=== PATIENT | female | born 1990 | race Hispanic/Latino ===

== ENCOUNTER 2018-05-17 03:40 | Inpatient (IN) | payer OTHER, SELFPAY ==
--- OUTSIDE RECORDS SUMMARY | 2018-05-17 07:05 | XMS REPORT ---
:1990 Author Organization [employer] Care Team Providers Name Role Phone Alpesh Obregon Provider Role Unavailable Allergies No Known Allergies Problems Problem Type Condition Code Onset Dates Condition Status Problem Encounter for supervision of Z34.02 Active normal first in second trimester Problem Encounter to determine O36.80X0 Active viability of , single or unspecified fetus Problem Glucosuria R81 Active Problem Encounter for supervision of Z34.01 Active normal first in first trimester Medications No Known Medications Results No Known Results Summary Purpose [employer] Submission
--- OUTSIDE RECORDS SUMMARY | 2018-05-17 07:05 | XMS REPORT ---
:1990 Author Organization [employer] Care Team Providers Name Role Phone Alpesh Obregon Provider Role Unavailable Allergies No Known Allergies Problems Problem Type Condition Code Onset Dates Condition Status Problem Encounter for supervision of Z34.01 Active normal first in first trimester Assessment Encounter for supervision of Z34.01 Active normal first in first trimester Problem Encounter to determine O36.80X0 Active viability of , single or unspecified fetus Assessment Encounter to determine O36.80X0 Active viability of , single or unspecified fetus Medications No Known Medications Results No Known Results Summary Purpose [employer] Submission
--- OUTSIDE RECORDS SUMMARY | 2018-05-17 07:05 | XMS REPORT ---
:1990 Author Organization [employer] Care Team Providers Name Role Phone Alpesh Obregon Provider Role Unavailable Allergies, Adverse Reactions, Alerts Substance Reaction Event Type N.K.D.A. Info Not Available Non Drug Allergy Problems Problem Type Condition Code Onset Dates Condition Status Problem Encounter for supervision of Z34.02 Active normal first in second trimester Problem Encounter to determine O36.80X0 Active viability of , single or unspecified fetus Problem Glucosuria R81 Active Assessment Glucosuria R81 Active Problem Encounter for supervision of Z34.01 Active normal first in first trimester Assessment Encounter for supervision of Z34.02 Active normal first in second trimester Medications No Known Medications Results No Known Results Summary Purpose [employer] Submission
--- OUTSIDE RECORDS SUMMARY | 2018-05-17 07:05 | XMS REPORT ---
:1990 Author Organization [employer] Care Team Providers Name Role Phone Alpesh Obregon Provider Role Unavailable Allergies, Adverse Reactions, Alerts Substance Reaction Event Type N.K.D.A. Info Not Available Non Drug Allergy Problems Problem Type Condition Code Onset Dates Condition Status Problem Encounter to determine O36.80X0 Active viability of , single or unspecified fetus Problem Encounter for supervision of Z34.01 Active normal first in first trimester Problem Encounter for supervision of Z34.02 Active normal first in second trimester Assessment Encounter for supervision of Z34.02 Active normal first in second trimester Medications No Known Medications Results No Known Results Summary Purpose [employer] Submission
--- OUTSIDE RECORDS SUMMARY | 2018-05-17 07:06 | XMS REPORT ---
:1990 Author Organization [employer] Care Team Providers Name Role Phone Alpesh Obregon Provider Role Unavailable Allergies, Adverse Reactions, Alerts Substance Reaction Event Type N.K.D.A. Info Not Available Non Drug Allergy Problems Problem Type Condition Code Onset Dates Condition Status Assessment Encounter for supervision of Z34.03 Active normal first in third trimester Assessment Uterine size-date discrepancy in O26.843 Active third trimester Problem Encounter for supervision of Z34.03 Active normal first in third trimester Problem Glucosuria R81 Active Problem Uterine size-date discrepancy in O26.843 Active third trimester Problem Encounter for supervision of Z34.01 Active normal first in first trimester Problem Encounter for supervision of Z34.02 Active normal first in second trimester Problem Encounter to determine O36.80X0 Active viability of , single or unspecified fetus Medications No Known Medications Results No Known Results Immunizations Vaccine Administration Date TDAP > 7 Years-Adacel Apr 12, 2018 Summary Purpose [employer] Submission
--- OUTSIDE RECORDS SUMMARY | 2018-05-17 07:06 | XMS REPORT ---
:1990 Author Organization [employer] Care Team Providers Name Role Phone Alpesh Obregon Provider Role Unavailable Allergies No Known Allergies Problems Problem Type Condition Code Onset Dates Condition Status Problem Encounter for supervision of Z34.02 Active normal first in second trimester Problem Encounter to determine O36.80X0 Active viability of , single or unspecified fetus Problem Glucosuria R81 Active Assessment Encounter for supervision of Z34.02 Active normal first in second trimester Problem Encounter for supervision of Z34.01 Active normal first in first trimester Medications No Known Medications Results No Known Results Summary Purpose [employer] Submission
--- OUTSIDE RECORDS SUMMARY | 2018-05-17 07:06 | XMS REPORT ---
:1990 Author Organization [employer] Care Team Providers Name Role Phone Alpesh [...] Medications Results No Known Results Summary Purpose [employer] Submission
--- OUTSIDE RECORDS SUMMARY | 2018-05-17 07:06 | XMS REPORT ---
:1990 Author Organization [employer] Care Team Providers Name Role Phone Alpesh Obregon Provider Role Unavailable Allergies No Known Allergies Problems Problem Type Condition Code Onset Dates Condition Status Assessment Encounter for supervision of Z34.03 Active normal first in third trimester Problem Encounter for supervision of [...]
--- OUTSIDE RECORDS SUMMARY | 2018-05-17 07:06 | XMS REPORT ---
[...] discrepancy in O26.843 Active third trimester Problem Glucosuria R81 Active Problem Encounter for supervision of Z34.02 Active normal first in second trimester Problem Encounter for supervision of Z34.03 Active normal first in third trimester Assessment Encounter for supervision of Z34.02 Active normal first in second trimester Problem Encounter to determine O36.80X0 Active viability of , single or unspecified fetus Problem Encounter for supervision of Z34.01 Active normal first in first trimester Medications No Known Medications Results No Known Results Summary Purpose [employer] Submission
--- OUTSIDE RECORDS SUMMARY | 2018-05-17 07:06 | XMS REPORT ---
[...] Medications Results No Known Results Summary Purpose [employer] Submission
[2018-05-17] MEDS ORDERED: BUTORPHANOL 1 MG/ML INJ IV PRN (07:51)
[2018-05-17] MEDS ORDERED: PROMETHAZINE 25 MG/ML VIAL IV PRN (07:51)
[2018-05-17] MEDS ORDERED: METHYLERGONOVINE 0.2MG/ML AMP IM PRN (07:51)
[2018-05-17] MEDS ORDERED: Ringers Lactate 1,000 ML IV PRN (07:51)
[2018-05-17] MEDS ORDERED: Ringers Lactate 1,000 ML IV SCH (08:00)
[2018-05-17 08:13] LABS: RPR Titer ND
[2018-05-17 08:18] LABS: Urine Appearance CLOUDY; Urine Bilirubin NEGATIVE (NEG); Urine Blood NEGATIVE (NEG); Urine Color YELLOW; Urine Glucose NEGATIVE (NEG); Urine Protein NEGATIVE (NEG); Urine Specific Gravity 1.015 (1.005-1.030); Urine Urobilinogen 0.2 mg/dL (0.2-1.0); Urine pH 7.5 (5.0-7.0)
[2018-05-17 08:20] LABS: Absolute Lymphocytes (CBC) 1.8 K/uL (0.7-4.9); Absolute Monocytes 0.4 K/uL (0.1-1.3); Absolute Neutrophil 5.9 K/uL (1.8-8.0); Basophils % 0.4 % (0-1.3); Eosinophils % 0.6 % (0-4.4); Hematocrit 37.7 % (36.0-45.0); Lymphocytes % 22.3 % (15.3-44.8); MCH 29.8 pg (27.0-35.0); MCV 86.5 fL (80-100); MPV 10.3 fL (7.6-11.3); Monocytes % 5.1 % (3.3-12.3); RBC Red Blood Cell Count 4.35 M/uL (3.86-4.86)
[2018-05-17 08:21] LABS: Urine Microscopic Reflex ORDER UMIC
[2018-05-17 08:31] VITALS: BMI 32.3
[2018-05-17 08:34] LABS: Urine Bacteria >50 /HPF (<20); Urine RBC <5 /HPF (NONE SEEN)
[2018-05-17 08:35] LABS: Urine Culture Reflex Order REFLEXED
[2018-05-17] MEDS ORDERED: miSOPROStol 100 MCG TAB VAG PRN (08:45)
[2018-05-17] MEDS ORDERED: ROPIVACAINE HCL 100 ML IV PRN (10:32)
[2018-05-17] MEDS ORDERED: FENTANYL CITR 100 MCG/2 ML IV ONE (10:34)
[2018-05-17] MEDS ORDERED: ROPIVACAINE HCL 0.2% 20ML AMP SQ ONE (10:34)
[2018-05-17] MEDS ORDERED: miSOPROStol 100 MCG TAB VAG SCH (15:00)
[2018-05-17] MEDS ORDERED: OXYTOCIN/LR 20 UNIT/1,000 ML BAG IV SCH (22:00)
--- NOTE | 2018-05-17 22:18 | P.PN ---
Date of Service: 05/17/18 Patient seen and examined at bedside. Patient notably in pain due to contractions. Last cytotec dose placed at 5:45 pm, it is now 6:45 pm. Patient states no leakage of fluid. Does not desire epidural but does need something for pain. VSS Gen: pain distress VE: 1/50%/-3 FHT: category II [place]: ctx q 3 min Early labor No further cytotec. Start pitocin in 4 hours epidural placement once > 2 cm GBS negative.
--- NOTE | 2018-05-17 23:20 | HP ---
Date of Admission: 05/17/2018 History Of Present Illness: The patient is a 27-year-old, 1, para 0, at 40 weeks and 4 days' gestation who presents for induction of labor. The patient has obtained care with me yosvany prasad at 9 weeks' gestation. care has been complicated by some glucose in the urine, otherwi se there have not been any issues. The patient is Rh negative. [facility] she was noted to be fingertip long -3 on her cervical exam. The patient has not been havin g any contractions. She reports good movement. She denies any vaginal bleeding. No leakage o f fluid. Her last ultrasound was performed on March 01, 2018, at which time there was appropriate fet al growth and the fetus was in cephalic presentation. Amniotic fluid was normal. She had a group B strep swab performed on 04/12 and that was negative. She has no medical issues. She has never had a ny surgeries. Family History: Noncontributory. Social History: She is to the father of the baby. Denies tobacco, alcohol, or drug use. Se e records for further details. Review of Systems: Negative. Physical Examination: Vital Signs: Blood pressure is 109/70, pulse is 85, respirations 18, temperature is 98.4. General: The patient is resting comfortably in bed. Head and Neck: Normocephalic, atraumatic. Neck: Supple. Heart: Regular rate and rhythm. Respiratory: Symmetric, nonlabored breathing. Abdomen: Gravid. Extremities: Bilateral lower extremities; no clubbing, cyanosis, or edema. Vaginal: Normal external female genitalia. Vagina is pink, moist, normal rugae. Cervical exam; she is fingertip to 1 cm long, -3 posterior location of the cervix. Laboratory Findings: White blood cell count 8.3, hemoglobin 13, hematocrit 37.7, platelet count is 1 87. Urine has no protein. heart rate monitoring; baseline heart rate is 140, moderate v ariability, category 2 tracing. [place]; irregular contractions. Assessment And Plan: The patient is a 27-year-old, 1, para 0, at 40 weeks and 4 days who pre sents for induction of labor. Cervical ripening has been started with Cytotec insertion, 25 mcg were placed vaginally, and will be placed every 4 hours. Once her cervix is dilated, rupture of membrane s will be performed. She is GBS negative. We will have continuous maternal monitoring. Antic ipate vaginal . Epidural placement at the patient's request. ILDEFONSO Voice ID: [id number]
[2018-05-18] MEDS ORDERED: FENTANYL CITR 100 MCG/2 ML IV ONE (05:21)
[2018-05-18] MEDS ORDERED: ROPIVACAINE HCL 0 ML ONE (05:26)
[2018-05-18] MEDS ORDERED: CEFAZOLIN/NS 1gm 1 GM/50 ML BAG IVPB ONE (08:31)
[2018-05-18] MEDS ORDERED: NA CIT/CITRIC AC 30 ML ORAL UDC PO ONE (08:31)
[2018-05-18] MEDS ORDERED: FAMOTIDINE 20 MG/2 ML VIAL IV ONE (08:35)
[2018-05-18] MEDS ORDERED: CEFAZOLIN/SWI 1gm 1 GM/10 ML SYR IV SCH (08:45)
[2018-05-18] MEDS ORDERED: LIDOCAINE 2% W/EPI 1:200,000 MPF 20 ML VIAL IM ONE (08:54)
[2018-05-18] MEDS ORDERED: METOCLOPRAMIDE 10 MG/2mL INJ IV SCH (09:00)
[2018-05-18] MEDS ORDERED: EPHEDRINE SULF 50 MG/ML SYR ONE (09:01)
[2018-05-18] MEDS ORDERED: OXYTOCIN 10 UNIT/ML ML IV ONE ×2 (09:01→09:02)
[2018-05-18] MEDS ORDERED: MORPHINE SULFATE/PF 1 MG/ML (10 ML AMP) ONE (09:01)
[2018-05-18] MEDS ORDERED: LIDOCAINE 1% MPF 5 ML VIAL ONE (09:02)
[2018-05-18] MEDS ORDERED: BUPIVACAINE 0.75% (PF) 2 ML SP ONE (09:09)
[2018-05-18] MEDS ORDERED: NS 0.9% VIAL 10 ML ONE (09:27)
[2018-05-18] MEDS ORDERED: METHYLERGONOVINE 0.2 MG TAB PO PRN (10:01)
[2018-05-18] MEDS ORDERED: Oxycodone HCl/Acetaminophen 1 TAB TAB PO PRN (10:01)
[2018-05-18] MEDS ORDERED: DOCUSATE NA/SENNA CONC 1 TAB PO PRN (10:01)
[2018-05-18] MEDS ORDERED: ACETAMINOPHEN 500 MG TAB PO PRN (10:01)
[2018-05-18] MEDS ORDERED: ONDANSETRON 4 MG (ODT) TAB PO PRN (10:01)
[2018-05-18] MEDS ORDERED: BISACODYL 10 MG RECTAL SUPP RECT PRN (10:01)
[2018-05-18] MEDS ORDERED: IBUPROFEN 400 MG TAB PO PRN (10:03)
[2018-05-18] MEDS ORDERED: KETOROLAC 30 MG/ML INJ IV PRN (10:03)
--- NOTE | 2018-05-18 10:12 | P.OP ---
Police Officer Booking: Sherry Linda Preoperative diagnosis: term , category II tracing remote from delivery Postoperative diagnosis: same Primary procedure: Primary low transverse section Secondary procedure: none Anesthesia: epidural Estimated blood loss: 800cc Specimen: cord blood, placenta Findings: normal uterus, ovaries, tubes; female infant 8 lb 3 oz; APGARS 9/9 Operative Technique: NDICATIONS: The patient is a 27-year-old 1, para 0 female, who presented to labor and delivery for induction of labor at 40 weeks and 4 days gestation. The patient progressed to 2 cm, at which time, Pitocin was started and epidural was placed. Patient then had a category II tracing with minimal to no variability that was not responding to intrauterine resuscitation. A decision was made to proceed with a primary low transverse section. The procedure was described to the patient in detail including possible risks of bleeding, infection, injury to surrounding organs, and possible need for further surgery. Informed consent was obtained prior to proceeding with the procedure. PROCEDURE NOTE: The patient was taken to the operating room where epidural anesthesia was found to be adequate. The patient was prepped and draped in the usual sterile fashion in the dorsal supine position with a left-brown tilt. A Pfannenstiel skin incision was made with the scalpel and carried through to the underlying layer of fascia using the scalpel. The fascia was incised in the midline and extended laterally using Lake scissors. Ashlee clamps were used to elevate the superior aspect of the fascial incision, which was elevated, and the underlying rectus muscles were dissected off bluntly and using Lake scissors. Attention was then turned to the inferior aspect of the fascial incision, which in similar fashion was grasped with Ashlee clamps, elevated, and the underlying rectus muscles were dissected off bluntly and using Lake scissors. The rectus muscles were dissected in the midline. The peritoneum was bluntly dissected, entered, and extended superiorly and inferiorly with good visualization of the bladder. The bladder blade was inserted. The vesicouterine peritoneum was identified with pickups and entered sharply using Metzenbaum scissors. This incision was extended laterally and the bladder flap was created digitally. The bladder blade was reinserted. The lower uterine segment was incised in a transverse fashion using the scalpel and extended using manual traction. Clear fluid was noted. The infant was subsequently delivered atraumatically. The nose and mouth were bulb suctioned. The cord was clamped and cut. The infant was subsequently handed to the awaiting patient care associate and nursery nurse. Next, cord blood was obtained. Subsequent to the collection of this blood, the placenta was removed spontaneously intact with a 3-vessel cord noted. The uterus was exteriorized and cleared of all clots and debris. The uterine incision was repaired in 2 layers using 0 chromic suture. The vesicouterine peritoneum was reapproximated with a 3.0 vicryl. Hemostasis was visualized. The uterus was returned to the abdomen. The uterine incision was reexamined and was noted to be hemostatic. The rectus muscles were reapproximated in the midline using 0 Vicryl. The fascia was closed with 0 Vicryl, the subcutaneous layer was closed with 2-0 plain gut, and the skin was closed with 3.0 Vicryl on Philipp needle. Sponge, lap, and instrument counts were correct x2. The patient was stable at the completion of the procedure and was subsequently transferred to the recovery room in stable condition. Complications: None Drain(s): Urinary catheter Transferred to: Recovery Room Condition: Good
[2018-05-18] MEDS ORDERED: DIPHENHYDRAMINE 25 MG TAB/CAP PO PRN (10:24)
[2018-05-18] MEDS ORDERED: ONDANSETRON 4 MG/2 ML VIAL IV PRN (10:41)
[2018-05-18] MEDS ORDERED: Rho(D) IG (HUMAN) 300 MCG SYR IM ONE (13:55)
[2018-05-18 16:23] VITALS: O2SAT 98
[2018-05-19 06:06] LABS: Absolute Lymphocytes (CBC) 1.5 K/uL (0.7-4.9); Absolute Monocytes 0.7 K/uL (0.1-1.3); Basophils % 0.5 % (0-1.3); Eosinophils % 0.3 % (0-4.4); Lymphocytes % 13.2 % (15.3-44.8); MCH 29.7 pg (27.0-35.0); MCV 87.3 fL (80-100); MPV 10.3 fL (7.6-11.3); Monocytes % 6.3 % (3.3-12.3); RBC Red Blood Cell Count 3.55 M/uL (3.86-4.86)
--- NOTE | 2018-05-19 07:04 | P.PN ---
Date of Service: 05/19/18 S- No complaints O-Afeb, vs stable, H/H stable, bandage dry, abdomen soft. A-Satisfactory P-Routine post op care with ambulation, advance diet, d/c guerrero, probably home tomorrow am.
[2018-05-19] MEDS: Oxycodone HCl/Acetaminophen 1 TAB TAB PO PRN ×3 (09:40→19:27)
[2018-05-19] MEDS ORDERED: INFLUENZA VACCINE (for 3y+) 0.5 ML DOSE IMVAC ONE ×2 (16:25→16:37)
[2018-05-19 18:44] LABS: HBsAG Nonreactive (Nonreactive)
[2018-05-19 20:59] LABS: RPR (Rapid Plasma Reagin) NON-REACT (NON-REACT)
[2018-05-20 07:22] VITALS: BP 113/72; TEMP 97.4
== END 2018-05-20 10:15 | disposition home or self-care (01) | DRG 788 ==
LOC: 2ND-WCNRSY 07:04 → 2ND-WC 08:06
PROVIDERS: ADMIT Student in an Organized Health Care Education/Training Program; ATTEND Student in an Organized Health Care Education/Training Program
PROC: 3E0P7VZ Introduction of Hormone into Female Reproductive, Via Natural or Artificial Opening (ICD-10-PCS; 2018-05-17)
PROC: 3E033VJ Introduction of Other Hormone into Peripheral Vein, Percutaneous Approach (ICD-10-PCS; 2018-05-18)
PROC: 10D00Z1 Extraction of Products of Conception, Low, Open Approach (ICD-10-PCS; principal; 2018-05-18 09:00)
DX: O76 Abnormality in fetal heart rate and rhythm complicating labor and delivery (principal); O62.4 Hypertonic, incoordinate, and prolonged uterine contractions; Z3A.40 40 weeks gestation of pregnancy; Z37.0 Single live birth
CPT/HCPCS: 36415; 81003; 81015; 85025; 85461; 86592; 86850; 86870; 86900; 86901; 87086; 87088; 87340; 88307; J0595; J0690; J2590; J2765; J2790; J2795; J3010; Q2035

== ENCOUNTER 2018-08-21 23:29 | Emergency (ER) | payer BC, OTHER ==
--- OUTSIDE RECORDS SUMMARY | 2018-08-21 23:31 | XMS REPORT ---
[...] Medications Results No Known Results Summary Purpose [employer] Submission
--- OUTSIDE RECORDS SUMMARY | 2018-08-21 23:32 | XMS REPORT ---
[...] 7 Years-Adacel Apr 12, 2018 Summary Purpose [employer] Submission
--- OUTSIDE RECORDS SUMMARY | 2018-08-21 23:32 | XMS REPORT ---
[...] Medications Results No Known Results Summary Purpose [employer] Submission
--- OUTSIDE RECORDS SUMMARY | 2018-08-21 23:32 | XMS REPORT ---
:1990 Author Organization [employer]ClinicalWorks Care Team Providers Name Role Phone Alpesh Obregon Provider Role Unavailable Allergies No Known Allergies Problems Problem Type Condition Code Onset Dates Condition Status Problem Encounter for supervision of Z34.01 Active normal first in first trimester Problem Encounter for routine Z39.2 Active follow-up Problem Uterine size-date discrepancy in O26.843 Active third trimester Problem Encounter for initial prescription Z30.011 Active of contraceptive pills Problem Encounter for supervision of Z34.02 Active normal first in second trimester Problem Encounter to determine O36.80X0 Active viability of , single or unspecified fetus Problem Encounter for supervision of Z34.03 Active normal first in third trimester Problem Glucosuria R81 Active Medications No Known Medications Results No Known Results Summary Purpose [employer]ClinicalWorks Submission
--- OUTSIDE RECORDS SUMMARY | 2018-08-21 23:32 | XMS REPORT ---
:1990 Author Organization [employer] Care Team Providers Name Role Phone Alpesh [...] Medications Results No Known Results Summary Purpose [employer] Submission
--- OUTSIDE RECORDS SUMMARY | 2018-08-21 23:32 | XMS REPORT ---
:1990 Author Organization [employer] Care Team Providers Name Role Phone Alpesh [...] Medications Results No Known Results Summary Purpose [employer] Submission
--- OUTSIDE RECORDS SUMMARY | 2018-08-21 23:32 | XMS REPORT ---
[...] Medications Results No Known Results Summary Purpose [employer] Submission
--- OUTSIDE RECORDS SUMMARY | 2018-08-21 23:32 | XMS REPORT ---
:1990 Author Organization [employer]Works Care Team Providers Name Role Phone Alpesh Obregon Provider Role Unavailable Allergies No Known Allergies Problems Problem Type Condition Code Onset Dates Condition Status Assessment Encounter for initial prescription Z30.011 Active of contraceptive pills Problem Encounter for supervision of Z34.01 Active [...]
--- OUTSIDE RECORDS SUMMARY | 2018-08-21 23:32 | XMS REPORT ---
:1990 Author Organization [employer]Works Care Team Providers Name Role Phone Alpesh Obregon Provider Role Unavailable Allergies, Adverse Reactions, Alerts Substance Reaction Event Type N.K.D.A. Info Not Available Non Drug Allergy Problems Problem Type Condition Code Onset Dates Condition Status Assessment History of delivery Z98.891 Active Assessment Postop check Z09 Active Problem Encounter for supervision of Z34.03 Active [...]
[2018-08-22 00:48] LABS: Absolute Monocytes 0.4 K/uL (0.1-1.3); Basophils % 0.6 % (0-1.3); Eosinophils % 3.3 % (0-4.4); Hematocrit 42.6 % (36.0-45.0); Lymphocytes % 38.7 % (15.3-44.8); MPV 9.4 fL (7.6-11.3); Monocytes % 5.4 % (3.3-12.3); RBC Red Blood Cell Count 5.04 M/uL (3.86-4.86)
[2018-08-22 01:02] LABS: ALT/SGPT 31 U/L (12-78); AST/SGOT 14 U/L (15-37); Albumin 4.1 g/dL (3.4-5.0); Alkaline Phosphatase 59 U/L (45-117); BUN Blood Urea Nitrogen 19 mg/dL (7-18); Bicarbonate 28 mmol/L (21-32); Bilirubin Direct 0.2 mg/dL (0-0.2); Bilirubin Total 0.5 mg/dL (0.2-1.0); Glucose Level 88 mg/dL (74-106); Lipase 203 U/L (73-393); Potassium 3.3 mmol/L (3.5-5.1); Sodium Level 141 mmol/L (136-145)
[2018-08-22] MEDS ORDERED: FENTANYL CITR 100 MCG/2 ML ONE (01:18)
--- NOTE | 2018-08-22 03:03 | EDPHYS ---
Physician Documentation [facility] Name: Inez Oro Age: 27 yrs Sex: Female : 1990 Arrival Date: 08/21/2018 Time: 23:29 Bed 18 Private MD: ED Physician Jeison Santos HPI: 08/22 01:17 This 27 yrs old Female presents to ER via Ambulatory with complaints of jr8 Abdominal Pain. 01:17 The patient presents with abdominal pain in the upper abdomen. Onset: The jr8 symptoms/episode began/occurred acutely, today. The symptoms do not radiate. Associated signs and symptoms: none. The symptoms are described as sharp. Modifying factors: The symptoms are alleviated by nothing, the symptoms are aggravated by nothing. Severity of pain: At its worst the pain was moderate in the emergency department the pain has resolved. The patient has not experienced similar symptoms in the past. The patient has not recently seen a physician. recent 3 months ago. Has been great up until tonight when she started with upper abdominal pain. Ate around 7 pm. Pain started about 1 hour prior to arrival . ELECTRIC RELAY TESTER: 08/21 23:41 LMP 07/2018 bb Historical: - Allergies: 23:41 No Known Allergies; bb - Home Meds: 23:41 None [Active]; bb - PMHx: 23:41 None; bb - PSHx: 23:41 ; bb - Immunization history:: Adult Immunizations up to date. - Social history:: Smoking status: Patient/guardian denies using tobacco. - Ebola Screening: : No symptoms or risks identified at this time. ROS: 08/22 01:17 Eyes: Negative for injury, pain, redness, and discharge, ENT: Negative for injury, jr8 pain, and discharge, Neck: Negative for injury, pain, and swelling, Cardiovascular: Negative for chest pain, palpitations, and edema, Respiratory: Negative for shortness of breath, cough, wheezing, and pleuritic chest pain, Back: Negative for injury and pain, MS/Extremity: Negative for injury and deformity, Skin: Negative for injury, rash, and discoloration, Neuro: Negative for headache, weakness, numbness, tingling, and seizure. Abdomen/GI: Positive for abdominal pain, nausea, Negative for vomiting, diarrhea, abdominal cramps, abdominal distension, anorexia, dysphagia, hematemesis, black/tarry stool, rectal pain, rectal bleeding, bowel incontinence, flatulence. Exam: :17 Eyes: Pupils equal round and reactive to light, extra-ocular motions intact. Lids and jr8 lashes normal. Conjunctiva and sclera are non-icteric and not injected. Cornea within normal limits. Periorbital areas with no swelling, redness, or edema. ENT: Nares patent. No nasal discharge, no septal abnormalities noted. Tympanic membranes are normal and external auditory canals are clear. Oropharynx with no redness, swelling, or masses, exudates, or evidence of obstruction, uvula midline. Mucous membranes moist. Neck: Trachea midline, no thyromegaly or masses palpated, and no cervical lymphadenopathy. Supple, full range of motion without nuchal rigidity, or vertebral point tenderness. No Meningismus. Cardiovascular: Regular rate and rhythm with a normal S1 and S2. No gallops, murmurs, or rubs. Normal PMI, no JVD. No pulse deficits. Respiratory: Lungs have equal breath sounds bilaterally, clear to auscultation and percussion. No rales, rhonchi or wheezes noted. No increased work of breathing, no retractions or nasal flaring. Back: No spinal tenderness. No costovertebral tenderness. Full range of motion. Skin: Warm, dry with normal turgor. Normal color with no rashes, no lesions, and no evidence of cellulitis. MS/ Extremity: Pulses equal, no cyanosis. Neurovascular intact. Full, normal range of motion. Neuro: Awake and alert, GCS 15, oriented to person, place, time, and situation. Cranial nerves II-XII grossly intact. Motor strength 5/5 in all extremities. Sensory grossly intact. Cerebellar exam normal. Normal gait. :17 Abdomen/GI: Inspection: abdomen appears normal, Bowel sounds: active, all quadrants, Palpation: soft, in all quadrants, mild abdominal tenderness, in the right upper quadrant, rebound tenderness, is not appreciated, voluntary guarding, is not appreciated, involuntary guarding, is not appreciated, no appreciated organomegaly, Indicators: McBurney's point is not tender, Bedoya's sign is negative, Rovsing's sign is negative, Liver: tenderness, is not appreciated. Vital Signs: 08/21 23:41 BP 124 / 94; Pulse 62; Resp 16 S; Temp 98(O); Pulse Ox 100% on R/A; Weight 72.57 kg bb (R); Height 5 ft. 5 in. (165.10 cm) (R); Pain 8; 08/22 00:30 BP 100 / 60; Pulse 60; Resp 18; Pulse Ox 98% on R/A; ea 01:00 BP 95 / 59; Pulse 66; Resp 18; Pulse Ox 98% on R/A; ea 02:30 BP 102 / 60; Pulse 60; Resp 19; Pulse Ox 99% ; ea 02:55 BP 108 / 58; Pulse 58; Resp 18; Pulse Ox 99% on R/A; ea 08/21 23:41 Body Mass Index 26.63 (72.57 kg, 165.10 cm) bb MDM: 00:13 Patient medically screened. jr8 03:01 Data reviewed: vital signs, nurses notes, lab test result(s), radiologic studies, CT jr8 scan, and as a result, I will discharge patient. Data interpreted: Pulse oximetry: on room air is 100 %. Interpretation: normal. Counseling: I had a detailed discussion with the patient and/or guardian regarding: the historical points, exam findings, and any diagnostic results supporting the discharge/admit diagnosis, lab results, radiology results, the need for outpatient follow up, a general surgeon, to return to the emergency department if symptoms worsen or persist or if there are any questions or concerns that arise at home. Response to treatment: the patient's symptoms have markedly improved after treatment. 08/22 00:13 Order name: Basic Metabolic Panel; Complete Time: 08/22 00:13 Order name: CBC with Diff; Complete Time: 08/22 00:13 Order name: Creatinine for Radiology; Complete Time: 08/22 00:13 Order name: Hepatic Function; Complete Time: 08/22 00:13 Order name: Lipase; Complete Time: 08/22 00:39 Order name: Urine Dipstick--Ancillary (enter results); Complete Time: 03:11 mw2 08/22 00:13 Order name: IV Saline Lock; Complete Time: 00:22 08/22 00:13 Order name: Labs collected and sent; Complete Time: 00:08/22 00:13 Order name: Urine Test (obtain specimen); Complete Time: :08/22 00:13 Order name: Urine Dipstick-Ancillary (obtain specimen); Complete Time: :08/22 00:39 Order name: Urine --Ancillary (enter results); Complete Time: 03:11 mw2 08/22 01:19 Order name: CT Abd/Pelvis - W/Contrast 8 Administered Medications: 01:14 Drug: fentaNYL (PF) 25 mcg Route: IVP; Site: right antecubital; ea 02:00 Follow up: Response: No adverse reaction; Pain is decreased rr5 Disposition: 05:21 Co-signature as Attending Physician, Jeison Santos MD I agree with the assessment and tw4 plan of care. Disposition: 08/22/18 03:02 Discharged to Home. Impression: Cholelithiasis. - Condition is Stable. - Discharge Instructions: Cholelithiasis. - Prescriptions for Tylenol- Codeine #3 300-30 mg Oral Tablet - take 2 tablets by ORAL route every 6 hours As needed; 12 tablet. Zofran 4 mg Oral Tablet - take 1 tablet by ORAL route every 12 hours As needed; 20 tablet. - Medication Reconciliation Form, Thank You Letter, Antibiotic Education, Prescription Opioid Use form. - Follow up: Dieter Man MD; When: 5 - 6 days; Reason: Recheck today's complaints, Continuance of care, Re-evaluation by your physician. - Problem is new. - Symptoms have improved. Signatures: Dispatcher [employer] EDAileen Eller RN RN Edgar Whelan PA PA jr8 Jennie Beckwith RN RN ea Wadley, Terrence, MD MD tw4 Gagan Nur RN rr5 Corrections: (The following items were deleted from the chart) 03:20 03:02 08/22/2018 03:02 Discharged to Home. Impression: Cholelithiasis. Condition is ea Stable. Forms are Medication Reconciliation Form, Thank You Letter, Antibiotic Education, Prescription Opioid Use. Follow up: Dieter Man; When: 5 - 6 days; Reason: Recheck today's complaints, Continuance of care, Re-evaluation by your physician. Problem is new. Symptoms have improved. jr8
--- NOTE | 2018-08-22 03:03 | ER ---
Nurse's Notes [facility] Name: Inez Oro Age: 27 yrs Sex: Female : 1990 Arrival Date: 08/21/2018 Time: 23:29 Bed 18 Private MD: Diagnosis: Cholelithiasis Presentation: 08/21 23:40 Presenting complaint: Patient states: she is having abdominal pain which started about bb 5 minutes ago with nausea pt states pain is 8/10. Transition of care: patient was not received from another setting of care. Onset of symptoms was August 21, 2018. Risk Assessment: Do you want to hurt yourself or someone else? Patient reports no desire to harm self or others. Initial Sepsis Screen: Does the patient meet any 2 criteria? No. Patient's initial sepsis screen is negative. Does the patient have a suspected source of infection? No. Patient's initial sepsis screen is negative. Care prior to arrival: None. 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 - Social history:: Smoking status: Patient/guardian denies using tobacco. - Ebola Screening: : No symptoms or risks identified at this time. Screenin/15 00:14 Abuse screen: Denies threats or abuse. Nutritional screening: No deficits noted. ea Tuberculosis screening: No symptoms or risk factors identified. Fall Risk None identified. Assessment: 00:12 General: Appears uncomfortable, Behavior is calm, cooperative, appropriate for age. ea Pain: Complains of pain in epigastric area, right upper quadrant and left upper quadrant Quality of pain is described as shooting. Neuro: Level of Consciousness is awake, alert, obeys commands, Oriented to person, place, time, situation. Cardiovascular: Patient's skin is warm and dry. Respiratory: Airway is patent Respiratory effort is even, unlabored, Respiratory pattern is regular, symmetrical. GI: Abdomen is non-distended, Bowel sounds present X 4 quads. Abd is soft and non tender X 4 quads. : No signs and/or symptoms were reported regarding the genitourinary system. Derm: Skin is dry, Skin is pale, Skin temperature is warm. Musculoskeletal: Circulation, motion, and sensation intact. 01:30 Reassessment: Patient and/or family updated on plan of care and expected duration. Pain rr5 level reassessed. Patient is alert, oriented x 3, equal unlabored respirations, skin warm/dry/pink. 02:50 Reassessment: Patient and/or family updated on plan of care and expected duration. Pain ea level reassessed. Patient is alert, oriented x 3, equal unlabored respirations, skin warm/dry/pink. 03:16 Reassessment: Patient and/or family updated on plan of care and expected duration. Pain ea level reassessed. Patient is alert, oriented x 3, equal unlabored respirations, skin warm/dry/pink. Discharge instructions given to patient, verbalized the understanding of instructions. Vital Signs: 08/21 23:41 BP 124 / 94; Pulse 62; Resp 16 S; Temp 98(O); Pulse Ox 100% on R/A; Weight 72.57 kg bb (R); Height 5 ft. 5 in. (165.10 cm) (R); Pain 8/10; 08/22 00:30 BP 100 / 60; Pulse 60; Resp 18; Pulse Ox 98% on R/A; ea 01:00 BP 95 / 59; Pulse 66; Resp 18; Pulse Ox 98% on R/A; ea 02:30 BP 102 / 60; Pulse 60; Resp 19; Pulse Ox 99% ; ea 02:55 BP 108 / 58; Pulse 58; Resp 18; Pulse Ox 99% on R/A; ea 08/21 23:41 Body Mass Index 26.63 (72.57 kg, 165.10 cm) bb ED Course: 08/21 23:29 Patient arrived in ED. am2 23:41 Triage completed. bb 23:41 Arm band placed on Patient placed in an exam room, on a stretcher, on pulse oximetry. bb Family accompanied patient. 23:53 Jennie Beckwith, [facility] is Primary Nurse. ea 08/22 00:12 Edgar Rodriguez PA is PHCP. jr8 00:13 Jeison Santos MD is Attending Physician. jr8 00:14 Patient has correct armband on for positive identification. Placed in gown. Bed in low ea position. Call light in reach. Side rails up X 1. 01:[address] via wheelchair. kw1 01:45 CT Abd/Pelvis - W/Contrast In Process Unspecified. EDMS 01:46 CT completed. Patient tolerated procedure well. Patient moved back from CT. kw1 03:02 Dieter Man MD is Referral Physician. jr8 03:17 No provider procedures requiring assistance completed. IV discontinued, intact, ea bleeding controlled, No redness/swelling at site. Pressure dressing applied. Administered Medications: 01:14 Drug: fentaNYL (PF) 25 mcg Route: IVP; Site: right antecubital; ea 02:00 Follow up: Response: No adverse reaction; Pain is decreased rr5 Outcome: 03:02 Discharge ordered by MD. jr8 03:17 Discharged to home ambulatory, with family. ea 03:17 Condition: improved 03:17 Discharge instructions given to patient, family, Instructed on discharge instructions, follow up and referral plans. medication usage, Demonstrated understanding of instructions, follow-up care, medications, Prescriptions given X 2. 03:20 Patient left the ED. ea Signatures: Dispatcher [employer] EDMS Aileen Solorzano RN RN Edgar Whelan PA PA jr8 Margret Gustafson Elena, RN RN Catherine Kim kw1 Gagan Nur RN RN rr5
[2018-08-22 03:09] LABS: Urine Blood TRACE (NEG); Urine Glucose NEGATIVE (NEG); Urine Protein NEGATIVE (NEG); Urine Specific Gravity 1.025 (1.005-1.030); Urine pH 6.5 (5.0-7.0)
[2018-08-22 03:36] VITALS: TEMP 98
[2018-08-22 03:40] VITALS: O2SAT 99
[2018-08-22 03:41] VITALS: BP 108/58
--- NOTE | 2018-08-22 08:14 | RAD REPORT ---
EXAM DESCRIPTION: CTAbdomen Pelvis W Contrast - 08/22/2018 5:01 am CLINICAL HISTORY: Abdominal pain. iv only;Abd pain COMPARISON: No comparisons TECHNIQUE: Biphasic CT imaging of the abdomen and pelvis was performed with 100 ml non-ionic IV cont rast. All CT scans are performed using dose optimization technique as appropriate and may include automated exposure control or mA/KV adjustment according to patient size. FINDINGS: The lung bases are clear.Cholelithiasis. The liver, spleen, pancreas, adrenal glands and kidneys are within normal limits. No bowel obstruction, free air, free fluid or abscess. The appendix is normal. No evidence of signi ficant lymphadenopathy. Chronic spondylolysis L5-S1. IMPRESSION: Cholelithiasis.
== END 2018-08-22 03:20 | disposition home or self-care (01) ==
LOC: ER 23:29
DX: K80.20 Calculus of gallbladder without cholecystitis without obstruction (principal)
CPT/HCPCS: 36415; 74177; 80048; 80076; 81003; 81025; 83690; 85025; 96374; 99284; J3010; Q9967

== ENCOUNTER 2022-03-21 19:23 | Emergency (ER) | payer BC, OTHER ==
--- OUTSIDE RECORDS SUMMARY | 2022-03-21 19:26 | XMS REPORT | Continuity of Care Document ---
:1990 Author Organization [facility] t Address [address] [place] [address] Care Team Providers Name Role Phone Corinne Quezada Primary Care Physician Mega Recinos Attending Clinician Unavailable AYDIN IRENE Attending Clinician Unavailable David Rivas Attending Clinician Unavailable Aydin Irene MD Attending Clinician VICKY VILLA Attending Clinician Unavailable Gopi García Admitting Clinician Unavailable KNOW, DOES_NOT Admitting Clinician Unavailable Payers Payer Name Policy Type Policy Number Effective Date Expiration Date [facility] - [id number] 2021 00:00:00 OUT OF STATE Problems Condition Condition Condition Status Onset Resolution Last Treating Co mments Source Name Details Category Date Date Treatment Clinician Date Encounter Encounter Problem Active Com mon for for Spirit supervisio supervisio - [facility] first trimester trimester Encounter Encounter Problem Active Com mon to to Spirit determine determine - [facility] I [facility] viability viability [facility] , , Ce nter single or single or unspecifie unspecifie d fetus d fetus Encounter Encounter Problem Active Com mon for for Spirit supervisio supervisio - [facility] n of n of [facility] normal [facility] in second in second trimester trimester Glucosuria Glucosuria Problem Active C ommon Spirit - [facility] Encounter Encounter Problem Active Com mon for for Spirit supervisio supervisio - [facility] n of n of St normal normal [facility] in third in third trimester trimester Uterine Uterine Problem Active Common size-date size-date Spir it discrepanc discrepanc - CHI y in third y in third St trimester trimester [facility] Encounter Encounter Problem Active Com mon for for Spirit initial initial - [facility]I prescripti prescripti St on of on of LuAirSage contracept contracept Me dical magda pills magda pills Cent er Encounter Encounter Problem Active Com mon for for Spirit routine routine - [facility]I St follow-up follow-up [facility] Calculus Calculus Diagnosis Active Com mon of of Edilberto gallbladde gallbladde - [facility]I r without r without St cholecysti cholecysti Karin kes tis tis Medical without without Center obstructio obstructio n n Allergies, Adverse Reactions, Alerts Allergy Allergy Status Severity Reaction(s) Onset Inactive Treating Comm ents Source Name Type Date Date Clinician No Known DA Active U 2020-0 [facility] 00 [facility] No Known DA Active U 2020-0 [facility] Allergie 6-19 [facility] 00:[facility] 00 [facility] NO KNOWN Drug Active Univers ALLERGIE Class ity of S [facility] Social History Social Habit Start Date Stop Date Quantity Comments Source Sex Assigned At [birth year] [facility] 00:00:00 00:00:00 [facility] Smoking Status Start Date Stop Date Source Unknown if ever smoked [facility] Medications Ordered Filled Start Stop Current Ordering Indication Dosage Frequency Signature Comments Components Source Medication Medication Date Date Medication? Clinician (SIG) Name Name Dixie Dixie 2018- Yes Diteer 1 tablet Com mon 1- Kovacpaemla Spirit 00:00: - [facility] 00 [facility] 1 1 Yes Dieter as Com mon Kovacev directed [facility] Immunizations Ordered Filled Immunization Date Status Comments Sourc e Immunization Name Name SARS-COV-2 COVID-19 2021-08-14 Completed [facility] 00:00:00 [facility] SARS-COV-2 COVID-19 2020-11-14 Completed Unive rsity of PFIZER VACCINE 00:00:00 [facility] SARS-COV-2 COVID-19 2020-10-24 Completed Unive rsity of PFIZER VACCINE 00:00:00 [facility] TDAP > 7 TDAP > 7 2018-04-12 Completed Common Spirit - Years-Adacel Years-Adacel 00:00:00 [facility] Procedures Procedure Date / Time Performed Performing Clinician Sourc e SARS-COV-2 COVID-19 2021-08-14 20:12:33 Doctor Unassigned, No [facility] [place] VACCINE,0.3ML,IM Name [facility] (PFIZER) [id number] 2020-01-28 00:00:00 [facility] [id number] 2020-01-28 00:00:00 [facility] [id number] 2020-01-28 00:00:00 [facility] Encounters Start End Encounter Admission Attending Care Care Encounter Source Date/Time Date/Time Type Type Clinicians Facility Department ID 2020-01-25 Inpatient Ever, [facility] [id number] [facility] 07:15:[id number] [facility] 2021-08-14 2021-08-14 Outpatient R MARIA VICTORIA [facility] [id number] Univers 13:40:00 14:01:15 [facility] 2021-08-14 2021-08-14 Nurse Nurse, David Oropeza [facility] [id number] Univers 13:40:00 14:01:[id number] [facility] [id number] Dat as HARJINDER?BLEA [phone] Mi jacobo DUARTE [address] [place] [address] MEDICAL OFFICE BUILDING 2021-08-14 2021-08-14 Outpatient R ALLEN [facility] [id number] Univers 13:40:00 13:40:00 VICKY [facility] 2021-08-14 2021-08-14 Outpatient R [facility] [id number] Univers 13:40:00 13:40:00 [id number] [facility] 2020-01-22 2020-01-22 Outpatient Ever, HCACL LABO [id number] [facility] 11:17:00 11:17:00 Ziad [id number] [facility] 2020-01-03 2020-01-03 Outpatient Ever, [facility] RADI [id number] [facility] 08:00:00 08:00:00 Ziad [id number] [facility] 2019-12-28 2019-12-28 Outpatient Ever, [facility] RADI [id number] [facility] 15:00:00 15:00:00 Ziad [id number] [facility] 2018-08-23 2018-08-23 [facility] [id number] Common 13:45:00 13:45:00 t Specialty/U Sp dwayne Specialty [facility] - /Urology Clinic [facility] 2018-07-26 2018-07-26 [facility] [id number] Common 14:40:00 14:40:00 [facility] 2018-07-20 2018-07-20 [facility] [id number] Common 16:03:00 16:03:00 t [facility] pirit Care [facility] 2018-05-25 2018-05-25 [facility] [id number] Common 10:15:00 10:15:[facility] 2018-05-10 2018-05-10 [facility] [id number] Common 15:15:00 15:15:00 t [facility] pirit Care [facility] 2018-05-03 2018-05-03 [facility] [id number] Common 14:30:00 14:30:00 t [facility] pirit Care [facility] 2018-04-27 2018-04-27 Out[facility] [id number] Common 15:45:00 15:45:00 t [facility]omens Care pirit Care [facility] 2018-04-19 2018-04-19 [facility] [id number] Common 15:30:00 15:30:00 t Womens [facility] S pirit Care Clinic - Clinic [facility] 2018-04-12 2018-04-12 [facility] [id number] Common 14:45:00 14:45:00 t Womens [facility] S pirit Care Clinic - Clinic [facility] 2018-03-27 2018-03-27 [facility] [id number] Common 14:15:00 14:15:00 t Women's Women's Spir it Care Care Clinic - [facility] I Clinic [facility] 2018-03-13 2018-03-13 [facility] [id number] Common 13:30:00 13:30:00 t Women's Women's Spir it Care Care Clinic - [facility] I Clinic [facility] 2018-03-01 2018-03-01 [facility] [id number] Common 14:30:00 14:30:00 t Women's Women's Spir it Care Care Clinic - [facility] I Clinic [facility] 2018-01-30 2018-01-30 [facility] [id number] Common 13:45:00 13:45:00 t Women's Women's Spir it Care Care Clinic - [facility] I Clinic [facility] 2018-01-20 2018-01-20 Out[facility] [id number] Common 11:15:00 11:15:00 t Women's Women's Spir it Care Care Clinic - [facility] I Clinic [facility] 2018-01-13 2018-01-13 [facility] [id number] Common 15:28:00 15:28:00 t Women's Women's Spir it Care Care Clinic - [facility] I Clinic [facility] 2017-12-29 2017-12-29 [facility] [id number] Common 13:30:00 13:30:00 t Women's Women's Spir it Care Care Clinic - [facility] I Clinic [facility] 2017-11-28 2017-11-28 Out[facility] [id number] Common 14:15:00 14:15:00 t Women's [facility]'s Sp[facility] it [facility] Care [facility] - [facility] I Clinic [facility] 2017-10-24 2017-10-24 Outpatient Nicholas Gil [id number] Common 14:45:00 14:45:00 t Women's Women's [facility] Results Test Description Test Time Test Comments Results Result [facility] e Comments [facility] 2020-01-30 TRIMESTER 12:03:00 --------RUN DATE: 02/01/20 [facility] PAGE 1 RUN TIME: 940 Specimen Inquiry RUN USER: INTERFACE --------PATIENT: COSTA NEGRO LOC: ARMANDO U #: [id number] AGE/SX: 29/F ROOM: [facility] RE01/25/20[facility] DR: Mega Recinos MD : 89 BED: A DIS: 01/28/20 STATUS: DIS IN TLOC: -------- SPEC #: [id number] RECD: 01/25/20-1005 STATUS: RACHEL MA #: [id number] TRISH: 01/25/20- SUBM DR: Mega Recinos MD ENTERED: 01/28/20-1006 SP TYPE: PLACIII OTHR DR: ORDERED: LEVEL V SURGICA/3 CODES: [id number] - FALLOPIAN TUBE [id number] - PLACENTA, NOS PROCEDURES: LEVEL V SURGICA (Incomplete) TISSUES: PLACENTA, NOS - PLACENTA WITH UTERUS FALLOPIAN TUBE, NOS - BILATERAL FALLOPIAN TUBES CLINICAL HISTORY 29 year old, 37-3/7 weeks, placenta accreta (kr) FINAL DIAGNOSIS Uterus and placenta, hysterectomy with removal of placenta: - placenta increta - placenta with subchorionic hematoma - placenta with foci of chorangiosis and focally increased perivillous fibrin associated with villous degeneration - trivascular umbilical cord and membranes - free of inflammation - uterine cervix - mild chronic inflammation - myometrium - villi focally extend into the myometrium with little to no intervening decidua - uterine serosa - scar on low anterior surface Designated "right fallopian tube", salpingectomy: - fallopian tube with complete surgical transection, no pathologic alteration (see comment) Designated "right fallopian tube, salpingectomy: - fallopian tube with complete surgical transection, no pathologic alteration (see comment) COMMENT: Both fallopian tubes are labeled "right fallopian tube" and each container contained a single fallopian tube, therefore the laterality of these two specimens is uncertain. Dr. Mega Recinos is notified of the results by telephone on 01/30/20 at 5:50 p.m. CPT code(s): 22042 x2, 41270 pkg/wpd CONTINUED ON NEXT PAGE --------RUN DATE: 02/01/20 [facility] PAGE 2 RUN TIME: 940 Specimen Inquiry RUN USER: INTERFACE --------SPEC #: [id number] PATIENT: COSTA NEGRO #[id number] (Continued) GROSS DESCRIPTION ANATOMIC SOURCE OF TISSUE (per Requisition): 1. Uterus, placenta 2. Left and right fallopian tubes Each specimen is labeled with the patient's name and medical record number. Specimen #1 is designated "uterus and placenta" and consists of a 23 x 18 x 11 cm, 1710 gm hysterectomy specimen. The serosa is munguia, smooth, and glistening and contains a 15 cm transverse incision in the lower anterior wall held together by multiple dark sutures. The anterior surface contains a 13 x 8 cm protrusion below the transverse incision line and approximately 4 cm superior to the cervical external os. The cervical external os measures 0.6 cm. The portio vaginalis measures 3.7 cm. Weight Reducing Technician sections are submitted labeled A1. The endometrial cavity measures 20 x 17 cm and contains an attached placental disc involving the upper two-thirds of the anterior wall. The placenta extends 1.5 cm into the fundus of the posterior uterine wall. In this area, the myometrium measures 0.6 cm. There appears to be no extension of placental tissue into the myometrium (A2). The myometrium measures up to 3.5 cm and contains no gross lesions. Weight Reducing Technician sections of the endomyometrium and serosa with overlying placental tissue from mid and upper posterior wall are submitted labeled A2 and A3. There is a large 8 x 6 x 4 cm red blood clot between the placenta and uterine wall in the lower one-fourth of the anterior uterine wall. In this area, the myometrium measures 0.2 cm. No perforation of the uterine wall is identified. Serial sectioning of the placental disc reveals dark maroon parenchyma containing a central munguia, firm lesion on the surface involving less than 5% of the total placental tissue. No extension of the placental tissue into the underlying myometrium is noted. The surface contains an 8 cm 3-vessel cord located 5 cm from the placental margin and 8 cm to the inferior edge of the placental disc. Section code: A4 - thin, lower, anterior uterine wall, A5 through A12 - guest relations representative sections of placenta with underlying myometrium from the inferior to superior aspect of the anterior wall, A13 through A16 - routine sections of placental disc, membranes and cord. Specimen #2 is designated "right fallopian tube" and consists of a 4 x 0.7 x 0.6 cm segment of fallopian tube with fimbria. The entire fimbria and one cross-section of tube are submitted and labeled B1. Specimen #3 is designated "right fallopian tube" and consists of a of 5.5 x 0.8 x 0.6 cm segment of fallopian tube with fimbria. The entire fimbria and one cross-section of tube are submitted labeled C1. leidy/tom 01/28/20 CONTINUED ON NEXT PAGE --------RUN DATE: 02/01/20 [facility] PAGE 3 RUN TIME: 940 Specimen Inquiry RUN USER: INTERFACE --------SPEC #: [id number] PATIENT: ARIN NEGROAMANDAHaritha #[id number] (Continued) MICROSCOPIC DESCRIPTION Specimen #1 consists of a hysterectomy specimen with a placenta in-situ. The placenta is composed of small vascular villi which are densely adherent to the endometrium. There is focal invasion of chorionic villi into the myometrium. The placenta has foci of chorangiosis and a large subchorionic hematoma is present. Focally increased perivillous fibrin is present associated with degenerated villi. This area accounts for less than 5% of the total placental parenchyma. The uterine serosa has a fibrous scar in the lower anterior region with a transversed incision. The trivascular umbilical cord and membranes are free of inflammation. The cervix has a mild infiltrate of small lymphocytes and plasma cells. Specimen #2 - the fallopian tube architecture is intact. The lumen is not dilated. A completely transected segment of fallopian tube is present. Specimen #3 - the fallopian tube architecture is intact. The lumen is not dilated. A completely transected segment of fallopian tube is present. gaston/reyna Signed Yi Miller 01/30/20 1203 -------- END OF REPORT RUBELLA SCREEN 2020-01-28 10:50:00 Test Item Value Reference Range Interpretation Comme nts RUBELLA SCREEN (test code = >500.0 IUnit/ml Results >10.0IUnits/ml are considered RUBSC) positive inacco rdance with the CLSI guidelines and based on the WHO International S tandard for Anti-Rubella se rum as anindicator of immune status a nd a breakpoint to detect mostsero positive persons. CBC W/AUTO [id number] 06:55:00 Test Item Value Reference Range Interpretation Comments WHITE BLOOD CELL (test code = WBC) 8.8 K/mm3 6.6-12.1 N RED BLOOD CELL (test code = RBC) 2.94 M/mm3 3.45-5.01 L HEMOGLOBIN (test code = HGB) 9.2 g/dL 10.7-13.9 L HEMATOCRIT (test code = HCT) 27.9 % 32.1-42.1 L MEAN CELL VOLUME (test code = MCV) 95 fL 84.1-94.8 H MEAN CELL HGB (test code = MCH) 31.3 pg 27-35 N MEAN CELL HGB CONCETRATION (test 33.0 gm/dL 32.2-34.1 N code = MCHC) RED CELL DISTRIBUTION WIDTH (test 14.5 % 12.4-16.5 N code = RDW) PLATELET COUNT (test code = PLT) 148 K/mm3 133-385 N MEAN PLATELET VOLUME (test code = 10.9 fl 9.1-12.7 N MPV) NEUTROPHIL % (test code = NT%) 68.1 % 56.5-79.4 N LYMPHOCYTE % (test code = LY%) 20.2 % 14.3-34.3 N MONOCYTE % (test code = MO%) 9.3 % 5.1-10.4 N EOSINOPHIL % (test code = EO%) 1.1 % 0.1-3.0 N BASOPHIL % (test code = BA%) 0.2 % 0.1-1.0 N NEUTROPHIL # (test code = NT#) 6.0 K/mm3 LYMPHOCYTE # (test code = LY#) 1.8 K/mm3 MONOCYTE # (test code = MO#) 0.8 K/mm3 EOSINOPHIL # (test code = EO#) 0.10 K/mm3 BASOPHIL # (test code = BA#) 0.0 K/mm3 RBC MORPHOLOGY REQUIRED (test code NORMAL NORMAL = RBCM) PLATELET MORPHOLOGY REQUIRED (test NORMAL NORMAL code = PLTMR) CAPILLARY BLOOD [id number] 09:56:00 Test Item Value Reference Range Interpretation Comments CAPILLARY BLOOD GAS PH (test code 7.353 7.35-7.45 N = PHC) CAPILLARY BLOOD GAS PCO2 (test 44.1 mmHg code = PCO2C) CAPILLARY BLOOD GAS PO2 (test code 35.9 mmHg = PO2C) CBG HCO3 (test code = HCO3C) 24.0 meq/L CBG BASE EXCESS (test code = BEC) -1.7 CBG O2 SATURATION (test code = 65.8 % SATC) CAPILLARY BLOOD GAS TYPE (test CBLA code = TYPEC) Novel Coronavirus 2019 [id number] 08:41:00 Test Item Value Reference Range Interpretation Comments Novel Coronavirus 2018 Inhouse (test Negative Negative code = COVNONPUI) NOTIFIED DEB GARSIA RESULT WILL BE IN @ 1100 PER MALGORZATA @ CLMICROBIOLOGY - 01/25/20 @ 0705Nov Coronavirus 2019 [id number] 08:41:00 Test Item Value Reference Range Interpretation Comments Novel Coronavirus 2018 Inhouse (test Negative Negative code = COVNONPUI) Coronavirus 2018 [facility] [id number] 08:17:00 Test Item Value Reference Range Interpretation Comments Coronavirus 2018 Negative Negative RESULTS CA LLED TO [facility] Bedside (test KRYSTALRE AD BACK & code = CONFIRMED? YESB Y Z.LAB.CAM COVNONPUIBED) 01/25/20 0817 This result does not rule o ut co-infections w ith otherpathogens. * False negative result s may occur if a specimen i simproperly collected, niño sported or handled. False negativeresults may also occur if amplif ication inhibitors arep resent in the specimen or if inadequate leve ls of virusesare pres ent in the specimen. Negat magda results should beconsid ered in the context of a pa tient's recent exposure s,history and the presenc e of clinical signs and symptomsconsist ent with COVID-19. * Neg ative results should be treated as presumptive andtested with an alterna tive FDA authorized mole cular assayif necessa ry for clinical managm ent, including infectioncontro l. * As with any molecu lar test,mutations within the target regions Aguilera ID NOW COVID-[address] could affect primeran d/or probe binding resulti ng in failure to dete ct therescence of the virus.TEST PERF ORMED UNDER AN EMERGENCY US E AUTHORIZATION F [facility] COMPREHENSIVE METABOLIC [id number] 06:53:00 Test Item Value Reference Range Interpretation Comments SODIUM (test code = NA) 139 mEq/L 135-145 N POTASSIUM (test code = K) 4.2 mEq/L 3.5-5.0 N CHLORIDE (test code = CL) 104 mEq/L 100-115 N CARBON DIOXIDE (test code = CO2) 27 mEq/L 22-31 N ANION GAP (test code = GAP) 11.90 10-20 N GLUCOSE (test code = GLU) 86 mg/dL 65-110 N BLOOD UREA NITROGEN (test code = 8 mg/dL 7-18 N BUN) GLOMERULAR FILTRATION RATE (test 120 ml/min >60 N code = GFR) CREATININE (test code = CREAT) 0.6 mg/dL 0.5-1.0 N TOTAL PROTEIN (test code = PROT) 6.5 gm/dL 6.3-8.2 N ALBUMIN (test code = ALB) 2.9 gm/dL 3.4-4.8 L CALCIUM (test code = CA) 9.2 mg/dL 8.4-10.2 N BILIRUBIN TOTAL (test code = BILT) 0.3 mg/dL 0.2-1.0 N SGOT/AST (test code = AST) 13 units/L 15-37 L SGPT/ALT (test code = ALT) 9 units/L 12-78 L ALKALINE PHOSPHATASE TOTAL (test 99 units/L 46-116 N code = ALKP) AG HEPATITIS B [id number] 13:00:00 Test Item Value Reference Range Interpretation Comments AG HEPATITIS B SURFACE (test code NONREACTIVE NONREACTIVE = HBSAG) IS CONSENT FORM SIGNED FOR HIV TESTING? YAB HEPATITIS C [id number] 13:00:00 Test Item Value Reference Range Interpretation Comments AB HEPATITIS C (test code = NONREACTIVE NONREACTIVE HCVAB) SIGNAL TO CUTOFF (test code = 0.02 <0.80 N CUTOFF) IS CONSENT FORM SIGNED FOR HIV TESTING? YAB [id number] 13:00:00 Test Item Value Reference Range Interpretation Comments AB TREPONEMA (test code = TREPAB) NONREACTIVE NONREACTIVE IS CONSENT FORM SIGNED FOR HIV TESTING? YAB HIV 1 13:00:00 Test Item Value Reference Range Interpretation Comments AB HIV 1 2 (test NONREACTIVE NONREACTIVE Done by [facility] code = CAL76PA) 4th Gen HIV Ag/Ab Combo Screen IS CONSENT FORM SIGNED FOR HIV TESTING? YAG HEPATITIS B [id number] 12:26:00 Test Item Value Reference Range Interpretation Comments AG HEPATITIS B SURFACE (test code NONREACTIVE NONREACTIVE = HBSAG) IS CONSENT FORM SIGNED FOR HIV TESTING? YAB HEPATITIS C [id number] 12:26:00 Test Item Value Reference Range Interpretation Comments AB HEPATITIS C (test code = HCVAB) NONREACTIVE SIGNAL TO CUTOFF (test code = CUTOFF) <0.80 IS CONSENT FORM SIGNED FOR HIV TESTING? YAB [id number] 12:26:00 Test Item Value Reference Range Interpretation Comments AB TREPONEMA (test code = TREPAB) NONREACTIVE NONREACTIVE IS CONSENT FORM SIGNED FOR HIV TESTING? YAB HIV 1 12:26:00 Test Item Value Reference Range Interpretation Comments AB HIV 1 2 (test code = [id number]) NONREACTIVE IS CONSENT FORM SIGNED FOR HIV TESTING? YCBC W/AUTO [id number] 11:02:00 Test Item Value Reference Range Interpretation Comments WHITE BLOOD CELL (test code = WBC) 10.3 K/mm3 6.6-12.1 N RED BLOOD CELL (test code = RBC) 4.07 M/mm3 3.45-5.01 N HEMOGLOBIN (test code = HGB) 12.1 g/dL 10.7-13.9 N HEMATOCRIT (test code = HCT) 38.5 % 32.1-42.1 N MEAN CELL VOLUME (test code = MCV) 95 fL 84.1-94.8 H MEAN CELL HGB (test code = MCH) 29.7 pg 27-35 N MEAN CELL HGB CONCETRATION (test 31.4 gm/dL 32.2-34.1 L code = MCHC) RED CELL DISTRIBUTION WIDTH (test 14.2 % 12.4-16.5 N code = RDW) PLATELET COUNT (test code = PLT) 184 K/mm3 133-385 N MEAN PLATELET VOLUME (test code = 11.1 fl 9.1-12.7 N MPV) NEUTROPHIL % (test code = NT%) 70.9 % 56.5-79.4 N LYMPHOCYTE % (test code = LY%) 18.8 % 14.3-34.3 N MONOCYTE % (test code = MO%) 6.6 % 5.1-10.4 N EOSINOPHIL % (test code = EO%) 1.7 % 0.1-3.0 N BASOPHIL % (test code = BA%) 0.3 % 0.1-1.0 N NEUTROPHIL # (test code = NT#) 7.3 K/mm3 LYMPHOCYTE # (test code = LY#) 1.9 K/mm3 MONOCYTE # (test code = MO#) 0.7 K/mm3 EOSINOPHIL # (test code = EO#) 0.17 K/mm3 BASOPHIL # (test code = BA#) 0.0 K/mm3 RBC MORPHOLOGY REQUIRED (test code NORMAL NORMAL = RBCM) PLATELET MORPHOLOGY REQUIRED (test NORMAL NORMAL code = PLTMR) - MRI PELVIS W/O [id number] 10:37:00 Patient Name: COSTA NEGRO Unit No: [id number] EXAMS: CPT CODE: [id number] MRI PELVIS W/O CONTRAST [id number] EXAMINATION: MRI of the pelvis without contrast 12/28/2019. CLINICAL HISTORY: Placenta accreta. COMPARISON: Obstetrical ultrasound 12/28/2019. TECHNIQUE: Multisequence multiplanar imaging of the pelvis was performed without intravenous contrast. FINDINGS: There is a zayas IUP in vertex presentation. Amniotic fluid volume is within normal limits. The examination was not performed to evaluate anatomy. The placenta is anterior in location. It is thicker than expected, measuring 5.4 cmin thickness. Within the anterior left placenta, there is a 16 mm round T2 hyperintense lesion with peripheral T2 hypointensity. The appearance is most consistent with a placental infarct. There is an a dditional less well-defined T2 hyperintense area measuring approximately 20 mm in the fundal placenta. This may also represent a placental infarct. There is no evidence of placenta previa and there is no evidence of morbidly adherent placenta. The placental cord insertion is within normal limits. Cervical length is 4.6 cm. No uterine leiomyomata are evident. Both ovaries are within normal limits in appearance. No free fluid is evident in the pelvis. The bladder is within normal limits in appearance.There is no lymphadenopathy. The visualized bowel is within normal limits. The appendix is not visualized. The visualized vascular and osseous structures are within normal limits. The visualized portion s of the abdomen demonstrate a probable cyst in the lower pole of the maternal right kidney. IMPRESSION: 1. The placenta is thicker than expected. This is a nonspecific finding. The placenta is anterior and there is no evidence of placenta previa. There is no primary or secondary evidence of morbidly adherent placenta. 2. The placenta demonstrates at least one placental infarct. Close follow-up for growth and ABIDA (which are currently within normal limits based on obstetrical ultrasound also performed 12/28/2019) is recommended. at 1037 Reported and signed by: Angie Delaney MD [facility] NAME: COSTA NEGRO Radiology Department PHYS: Mega Padron MD [address] : 1990 AGE: 29 SEX: F [place] [address] LOC: F.RAD PHONE #: [phone] EXAM DATE: 12/28/2019 STATUS:DEP CLI FAX #: [phone] RAD NO: Page 1 Signed Report (CONTINUED) Patient Name: COSTA NEGROUn No: [id number] EXAMS: CPT CODE: [id number] MRI PELVIS W/O CONTRAST 64519 <Continued> CC: Gopi García MD; Mega Recinos MD Technologist: Ruthie Zapata, Trnscrbd D/ (1037) tPUJA Orig Print D/T: S: 12/29/2019 (1040) [facility] NAME: COSTA NEGRO Radiology Department PHYS: Mega Padron MD [address] : 1990 AGE: 29 SEX: F [place] [address] LOC: LUBNA PHONE #: [phone] EXAM DATE: 12/28/2019 STATUS: URSULA WORTHY #: [phone] RAD NO: Page 2 Signed Report- US PREG UT [id number] 18:30:00 Patient Name: COSTA NEGRO Unit No: [id number] EXAMS: CPT CODE: [id number] US PREG UT TRANSVAGINAL 08739 [facility] [address] [place], [place] [address] OBSTETRICAL ULTRASOUND REPORT --- Pat. Name: COSTA NEGRO Pat. No: [id number] Study Date: 12/28/2019 2:05pm , Age: 03 1990, 29 Pregnancies: 2, Para 1001 LMP: 05/07/2019 GA by LMP: 33w4d GA by US: 33w4d GA Selected: 33w3d (From Known E) ROBLES: 02/12/2020 Referring MD: Mega Recinos Curator [employer]: Candice Tavarez RDMS CPT4: [id number] Admitting MD: Mega Recinos Hist/Ind: SCAN#1 ACCRETA MEASUREMENTS AGE GROWTH EVALUATION Measurement GA Range Srce %for GA Ratios ----- ---- ------- BPD 8.1 cm 32w6d (39z2e-02g2d) Hadl BPD 42% FL/BPD 0.83 (0.71 - 0.87) HC 31.0 cm 34w1d (82a0o-68k1z) Hadl HC 61% FL/AC 0.23 (0.20 - 0.24) APD9.9 cm APD HC/AC 1.06 (0.95 - 1.13) TAD 8.6 cm TAD CI 0.74 (0.70 - 0.86) AC 29.1 cm 33w1d (02s8k-92f2l) Hadl AC 47% FL 6.7 cm 34w2d (07g4z-34l6x) Hadl FL 62% HL 5.6 cm 32w4d (96g5h-99b4p) Alex HL 35% GA for sonogram 33w4d (95j4k-76s6e) Weight Estimate: based on (BPD,HC,AC,FL) Hadlock Weight: 2235 gm (8953-2184) Hadlo : 4lbs, 14oz Normal: 2100 gm (2808-1606) Brenn Wt% 58% for 33.4 wks Cervical Le ngth: 4.1 cm Heart Rate: 145 bpm Amniotic Fluid Index: 11.5cm (08.2-24.6) Q1: 0.0cm Q2: 2.2cmQ3: 4.1cm Q4: 5.1cm MATERNAL ANATOMY Ovaries LxHxW (cm) Right 3.1 x 1.8 x 2.5 Vol: 7.3cc Left 3.5 x 2.6 x 1.7 Vol: 8.1cc CLINICAL SUMMARY Type of Gestation: Zayas Intrauterine in vertex presentation. size is appropriate for gestational age. motion and organs seen: heart motion seen [facility] NAME: COSTA NEGRO Radiology Department PHYS: Mega Padron MD [address] : 1990 AGE: 29 SEX: F [place], [place] [address] LOC: SagarRAD PHONE #: [phone] EXAM DATE: 12/28/2019 STATUS: DEP CLI FAX #: [phone] RAD NO: Page 1 Signed Report(CONTINUED) Patient Name: COSTA NEGRO Unit No: [id number] EXAMS: CPT CODE: [id number] [facility] TRANSVAGINAL 18612 <Continued> body and limb movements seen Four chamber heart observed Right ventricular outflow tract (RVOT) seen LVOT suboptimally seen Normal intracranial anatomyseen, although posterior fossa suboptimally seen. Umbilical cord insertion in fetus seen stomach, Renal Fossa, Bladder and Spine seen Three vessel umbilical cord noted abnormalities observed: None seen at this exam Placental location: Anterior Placental maturity : Grade 1-2 There is no evidence of placenta previa. Amniotic fluid volume is normal. Uterus and adnexa: No significant abnormality is seen. THERE IS NO SONOGRAPHIC EVIDENCE OF PLACENTA ACCRETA. Thank you for allowing us to participate in the care of this patient. Angie Delaney M.D. Electronic Signature 12/28/2019 06:30pm at 1830 Reported and signed by: Angie Delaney MD CC: Gopi García MD; Mega Recinos MD Technologist: Candice Tavarez, [facility] Probe: [id number] Trnscrbd D/ (1830) t.SDR.WS Orig Print D/T: S: 01/01/2020 (0850) [facility] NAME: COSTA NEGRO Radiology Department PHYS: Mega Padron MD [address] : 1990 AGE: 29 SEX: F [place] [address] LOC: SagarRAD PHONE #: [phone] EXAM DATE: 12/28/2019 STATUS: DEP CLI FAX #: [phone] RAD NO: Page 2 Signed Report Patient Name: LAVINIA NEGROTAYLOR Unit No: [id number] EXAMS: CPT CODE: [id number] US PREG UT TRANSVAGINAL 75719 <Continued> [facility] NAME: NEGRODEIRDREHaritha RadiologyDepartment PHYS: Mega Padron MD [address] : 1990 AGE: 29 SEX: F [place] [address] LOC: SagarRAD PHONE #: [phone] EXAM DATE: 12/28/2019 STATUS: DEP CLI FAX #: [phone] RAD NO: Page 3 Signed Report- US PREG AFTER [id number] 18:30:00 Patient Name: ARIN NEGROAMANDAHaritha Unit No: [id number] EXAMS: CPT CODE: [id number] US PREG AFTER TRI 98433 [facility] [address] [place], [place] [address] OBSTETRICAL ULTRASOUND REPORT --- Pat. Name: COSTA NEGRO Pat. No: [id number] Study Date: 12/28/2019 2:05pm , Age: 03 1990, 29 Pregnancies: 2, [id number] LMP: 05/07/2019 GA by LMP: 33w4d GA by US: 33w4d GA Selected: 33w3d (From Known E) ROBLES: 02/12/2020 Referring MD: MEGA RECINOS Curator [employer]: Candice Tavarez RDMS CPT4: [id number] Admitting MD: MEGA RECINOS Hist/Ind: SCAN#1 ACCRETA MEASUREMENTS AGE GROWTH EVALUATION Measurement GA Range Srce %for GA Ratios ----- ---- ------- BPD 8.1 cm 32w6d (35p5e-78r9d) Hadl BPD 42% FL/BPD 0.83 (0.71 - 0.87) HC 31.0 cm 34w1d (10q7w-50z7w) Hadl HC 61% FL/AC 0.23 (0.20 - 0.24) APD 9.9 cm APD HC/AC 1.06 (0.95 - 1.13) TAD 8.6 cm TAD CI 0.74 (0.70 - 0.86) AC 29.1 cm 33w1d (59y0u-57u8g) Hadl AC 47% FL 6.7 cm 34w2d (14t3p-42w2z) Hadl FL 62% HL 5.6 cm 32w4d (26q4o-72p0w) Alex HL 35% GAfor sonogram 33w4d (28d2i-81w6v) Weight Estimate: based on (BPD,HC,AC,FL) Hadlock Weight: 2235gm (8228-3410) Hadlo : 4lbs, 14oz Normal: 2100 gm (4190-8324) Brenn Wt% 58% for 33.4 wks Cervical Le ngth: 4.1 cm Heart Rate: 145 bpm Amniotic Fluid Index: 11.5cm (08.2-24.6) Q1: 0.0cm Q2: 2.2cm Q3: 4.1cm Q4: 5.1cm MATERNAL ANATOMY Ovaries LxHxW (cm) Right 3.1 x 1.8 x 2.5 Vol: 7.3cc Left 3.5 x 2.6 x 1.7 Vol: 8.1cc CLINICAL SUMMARY Type of Gestation: Zayas Intrauterine in vertex presentation. size is appropriate for gestational age. motion and organs seen: heart motion seen [facility] NAME: COSTA NEGRO Radiology Department PHYS: Mega Padron MD [address] : 1990 AGE: 29 SEX: F [place] [address] LOC: SagarRAD PHONE #: [phone] EXAM DATE: 12/28/2019 STATUS: REG CLI FAX #: [phone] RAD NO: Page 1 Signed Report(CONTINUED) Patient Name: COSTA NEGRO Unit No: [id number] EXAMS: CPT CODE: [id number] US PREG AFTER 1ST TRI 11450 <Continued> body and limb movements seen Four chamber heart observed Right ventricular outflow tract (RVOT) seen LVOT suboptimally seen Normal intracranial anatomyseen, although posterior fossa suboptimally seen. Umbilical cord insertion in fetus seen stomach, Renal Fossa, Bladder and Spine seen Three vessel umbilical cord noted abnormalities observed: None seen at this exam Placental location: Anterior Placental maturity : Grade 1-2 There is no evidence of placenta previa. Amniotic fluid volume is normal. Uterus and adnexa: No significant abnormality is seen. THERE IS NO SONOGRAPHIC EVIDENCE OF PLACENTA ACCRETA. Thank you for allowing us to participate in the care of this patient. Angie Delaney M.D. Electronic Signature 12/28/2019 06:30pm at 1830 Reported and signed by: Angie Delaney MD CC: Gopi García MD; Mega Recinos MD Technologist: Candice Tavarez RDMS Probe: Trnscrbd D/ (1829) aida.[facility] Orig Print D/T: S: 12/28/2019 (1829) [facility] NAME: COSTA NEGRO Radiology Department PHYS: Mega Padron MD [address] : 1990 AGE: 29 SEX: F [place] [address] LOC: F.RAD PHONE #: [phone] EXAM DATE: 12/28/2019 STATUS: REG CLI FAX #: [phone] RAD NO: Page 2 Signed Report Patient Name: COSTA NEGRO Unit No: [id number] EXAMS: CPT CODE: [id number] US PREG AFTER 1ST TRI 14882 <Continued> [facility] NAME: COSTA NEGRO Radiology Department PHYS: Mega Padron MD [address] : 1990 AGE: 29 SEX: F [place], [place] [address] LOC: SagarRAD PHONE #: [phone] EXAM DATE: 12/28/2019 STATUS: REG CLI FAX #: [phone] RAD NO: Page 3 Signed Report
[2022-03-21 20:11] LABS: Urine Blood 1+ (Negative); Urine Glucose Negative (Negative); Urine Protein Negative (Negative)
[2022-03-21 20:31] LABS: Absolute Lymphocytes (CBC) 1.5 K/uL (0.7-4.9); Hematocrit 38.9 % (36.0-45.0); Lymphocytes % 18.3 % (15.3-44.8); MCV 85.5 fL (80-100); MPV 8.6 fL (7.6-11.3); RBC Red Blood Cell Count 4.54 M/uL (3.86-4.86)
[2022-03-21 20:47] LABS: Urine Bacteria 20-50 /HPF (<20); Urine RBC <5 /HPF (None Seen)
[2022-03-21 20:50] LABS: Albumin 3.8 g/dL (3.4-5.0); Bilirubin Total 0.3 mg/dL (0.2-1.0); Potassium 3.6 mmol/L (3.5-5.1); Protein, Total 7.4 g/dL (6.4-8.2)
--- NOTE | 2022-03-21 20:56 | ER ---
Nurse's Notes [facility] Name: Inez Oro Age: 31 yrs Sex: Female : 1990 Arrival Date: 03/21/2022 Time: 19:26 Bed 24 Private MD: Diagnosis: Biliary colic;Other cholelithiasis without obstruction;Elevated transaminases;UTI/ Urinary tract infection, site not specified Presentation: 03/21 19:46 Chief complaint: Patient states: Pt states epigastric pain and nausea intermittently x6 kb3 days, worse with eating. Hx of gallstones. Coronavirus screen: Vaccine status: Patient reports receiving the 2nd dose of the covid vaccine. Client denies travel out of the [place] in the last 14 days. At this time, the client does not indicate any symptoms associated with coronavirus-19. Ebola Screen: Patient negative for fever greater than or equal to 101.5 degrees Fahrenheit, and additional compatible Ebola Virus Disease symptoms Patient denies exposure to infectious person. Patient denies travel to an Ebola-affected area in the 21 days before illness onset. No symptoms or risks identified at this time. Initial Sepsis Screen: Does the patient meet any 2 criteria? No. Patient's initial sepsis screen is negative. Does the patient have a suspected source of infection? No. Patient's initial sepsis screen is negative. Risk Assessment: Do you want to hurt yourself or someone else? Patient reports no desire to harm self or others. Onset of symptoms was March 14, 2022. 19:46 Method Of Arrival: Ambulatory kb3 19:46 Acuity: RENE 3 kb3 Triage Assessment: 19:49 General: Appears in no apparent distress. comfortable, Behavior is calm, cooperative. kb3 Pain: Complains of pain in epigastric area Pain radiates to right scapular area Pain currently is 6 out of 10 on a pain scale. Quality of pain is described as sharp, Is intermittent. GI: Reports bloating, nausea. 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 - Social history:: Smoking status: Patient denies any tobacco usage or history of. Patient uses alcohol, only on a social basis. Patient/guardian denies using street drugs. Screenin:16 Abuse screen: Denies threats or abuse. Denies injuries from another. Nutritional tw5 screening: No deficits noted. Tuberculosis screening: No symptoms or risk factors identified. Fall Risk None identified. Assessment: 20:16 General: Reports "We were at an [employer] and after eating i started to have tw5 this pain. It is very similar to the pain I had in 2019 when they told me that I had gallstones.". Pain: Complains of pain in diaphragm and right breast Pain radiates to anterior aspect of right shoulder Pain currently is 4 out of 10 on a pain scale. Neuro: No deficits noted. Cardiovascular: No deficits noted. Respiratory: No deficits noted. : Urine is cloudy. Derm: No deficits noted. 20:52 Reassessment: Patient appears in no apparent distress at this time. No changes from tw5 previously documented assessment. Patient and/or family updated on plan of care and expected duration. Pain level reassessed. Patient is alert, oriented x 3, equal unlabored respirations, skin warm/dry/pink. Pain: Pain currently is 5 out of 10 on a pain scale. 21:05 Reassessment: Patient states feeling better. Patient states symptoms have improved. tw5 21:05 GI: Bowel sounds present X 4 quads. Abdomen is tender to palpation in right upper tw5 quadrant. Vital Signs: 19:46 BP 121 / 81; Pulse 72; Resp 18; Temp 98.1; Pulse Ox 100% ; Weight 72.57 kg; Height 5 kb3 ft. 5 in. (165.10 cm); Pain 6/10; 20:16 BP 107 / 62; Pulse 70; Resp 18; Pulse Ox 98% on R/A; Pain 4/10; tw5 20:52 BP 102 / 80; Pulse 67; Resp 18; Pulse Ox 100% on R/A; Pain 5/10; tw5 19:46 Body Mass Index 26.63 (72.57 kg, 165.10 cm) kb3 ED Course: 19:26 Patient arrived in ED. rg4 19:49 Triage completed. kb3 19:49 Arm band placed on right wrist. Patient notified of wait time. kb3 19:50 Saadia Javier FNP-C is [facility]. snw 19:50 Luis Addison MD is Attending Physician. snw 20:16 Sadaf Verduzco is Primary Nurse. tw5 20:16 Awaiting lab results. tw5 20:16 Patient has correct armband on for positive identification. Bed in low position. Call tw5 light in reach. Side rails up X 1. Adult w/ patient. Pulse ox on. NIBP on. Door closed. Noise minimized. Moved to private room. Warm blanket given. Verbal reassurance given. 20:16 Initial lab(s) drawn, by me, sent to lab. Inserted saline lock: 20 gauge in right tw5 antecubital area, using aseptic technique. Blood collected. 20:19 Urine --Ancillary (enter results) Sent. tw5 20:19 CBC with Diff Sent. tw5 20:19 CMP Sent. tw5 20:19 Lipase Sent. tw5 20:19 Urine Culture Sent. tw5 20:19 Urine Microscopic Only Sent. tw5 20:48 Lipase Sent. tw5 20:48 CMP Sent. tw5 20:54 Clifford Ponce MD is Referral Physician. snw 21:05 No provider procedures requiring assistance completed. IV discontinued, intact, tw5 bleeding controlled, No redness/swelling at site. Pressure dressing applied. 21:14 US Abdomen Limited In Process Unspecified. EDMS Administered Medications: 20:51 Drug: Ketorolac 30 mg Route: IVP; Site: right antecubital; tw5 21:01 Follow up: Response: No adverse reaction tw5 21:01 Drug: Rocephin (cefTRIAXone) 1 grams Route: IV; Rate: calculated rate; Site: right tw5 antecubital; 21: Follow up: IV Status: Completed infusion; IV Intake: 50ml tw5 Medication: 21:05 VIS not applicable for this client. tw5 Intake: 21:01 IV: 50ml; Total: 50ml. tw5 Outcome: 20:56 Discharge ordered by . snw 21:05 Discharged to home ambulatory. tw5 21:05 Condition: good 21:05 Discharge instructions given to patient, Instructed on discharge instructions, follow up and referral plans. Demonstrated understanding of instructions, follow-up care, medications, Prescriptions given X 2. 21:05 Patient left the ED. tw5 Signatures: Dispatcher [employer] EDMS Saadia Javier, GRAINING MACHINE OPERATOR-C GRAINING MACHINE OPERATOR-Kennethw Mairposa Rose rg4 Sadaf Verduzco tw5 Roya Rebollar, RN RN kb3
--- NOTE | 2022-03-21 20:57 | EDPHYS ---
Physician Documentation [facility] Name: Inez Oro Age: 31 yrs Sex: Female : 1990 Arrival Date: 03/21/2022 Time: 19:26 Bed 24 Private MD: ED Physician Luis Addison HPI: 03/21 20:42 This 31 yrs old Female presents to ER via Ambulatory with complaints of snw Abdominal Pain. 20:42 The patient presents with abdominal pain in the epigastric area. Onset: The snw symptoms/episode began/occurred gradually, 3 day(s) ago, and became persistent today. The symptoms do not radiate. Associated signs and symptoms: Pertinent positives: nausea. The symptoms are described as crampy. Severity of pain: At its worst the pain was moderate in the emergency department the pain has improved. The patient has experienced similar episodes in the past, 2019 pt was told she had gallstones, dietary changes resolved discomfort until three days ago. The patient has not recently seen a physician, Seekey Melton NP. 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 - Social history:: Smoking status: Patient denies any tobacco usage or history of. Patient uses alcohol, only on a social basis. Patient/guardian denies using street drugs. ROS: 20:41 Constitutional: Negative for fever, chills, and weight loss, Eyes: Negative for injury, snw pain, redness, and discharge, ENT: Negative for injury, pain, and discharge, Neck: Negative for injury, pain, and swelling, Cardiovascular: Negative for chest pain, palpitations, and edema, Respiratory: Negative for shortness of breath, cough, wheezing, and pleuritic chest pain, Back: Negative for injury and pain, : Negative for injury, bleeding, discharge, and swelling, hx of lots of UTIs MS/Extremity: Negative for injury and deformity, Skin: Negative for injury, rash, and discoloration, Neuro: Negative for headache, weakness, numbness, tingling, and seizure, Psych: Negative for depression, anxiety, suicide ideation, homicidal ideation, and hallucinations. 20:41 Abdomen/GI: Positive for abdominal pain, nausea, of the right upper quadrant. Exam: 20:41 Constitutional: This is a well developed, well nourished patient who is awake, alert, snw and in no acute distress. Head/Face: Normocephalic, atraumatic. Eyes: Pupils equal round and reactive to light, extra-ocular motions intact. Lids and lashes normal. Conjunctiva and sclera are non-icteric and not injected. Cornea within normal limits. Periorbital areas with no swelling, redness, or edema. ENT: Nares patent. No nasal discharge, no septal abnormalities noted. Tympanic membranes are normal and external auditory canals are clear. Oropharynx with no redness, swelling, or masses, exudates, or evidence of obstruction, uvula midline. Mucous membranes moist. Neck: Trachea midline, no thyromegaly or masses palpated, and no cervical lymphadenopathy. Supple, full range of motion without nuchal rigidity, or vertebral point tenderness. No Meningismus. Chest/axilla: Normal chest wall appearance and motion. Nontender with no deformity. No lesions are appreciated. Cardiovascular: Regular rate and rhythm with a normal S1 and S2. No gallops, murmurs, or rubs. Normal PMI, no JVD. No pulse deficits. Respiratory: Lungs have equal breath sounds bilaterally, clear to auscultation and percussion. No rales, rhonchi or wheezes noted. No increased work of breathing, no retractions or nasal flaring. Back: No spinal tenderness. No costovertebral tenderness. Full range of motion. Skin: Warm, dry with normal turgor. Normal color with no rashes, no lesions, and no evidence of cellulitis. MS/ Extremity: Pulses equal, no cyanosis. Neurovascular intact. Full, normal range of motion. Neuro: Awake and alert, GCS 15, oriented to person, place, time, and situation. Cranial nerves II-XII grossly intact. Motor strength 5/5 in all extremities. Sensory grossly intact. Cerebellar exam normal. Normal gait. Psych: Awake, alert, with orientation to person, place and time. Behavior, mood, and affect are within normal limits. 20:41 Abdomen/GI: Inspection: abdomen appears normal, Bowel sounds: normal, Palpation: mild abdominal tenderness, in the right upper quadrant. Vital Signs: 19:46 BP 121 / 81; Pulse 72; Resp 18; Temp 98.1; Pulse Ox 100% ; Weight 72.57 kg; Height 5 kb3 ft. 5 in. (165.10 cm); Pain 6/10; 20:16 BP 107 / 62; Pulse 70; Resp 18; Pulse Ox 98% on R/A; Pain 4/10; tw5 20:52 BP 102 / 80; Pulse 67; Resp 18; Pulse Ox 100% on R/A; Pain 5/10; tw5 19:46 Body Mass Index 26.63 (72.57 kg, 165.10 cm) kb3 MDM: 20:20 Patient medically screened. snw 20:52 Data reviewed: vital signs, nurses notes. Data interpreted: Pulse oximetry: on room air snw is 100 %. Interpretation: normal. Counseling: I had a detailed discussion with the patient and/or guardian regarding: the historical points, exam findings, and any diagnostic results supporting the discharge/admit diagnosis, lab results, radiology results, the need for outpatient follow up, to return to the emergency department if symptoms worsen or persist or if there are any questions or concerns that arise at home. Response to treatment: the patient's symptoms have mildly improved after treatment. Special discussion: Based on the patient's Hx, exam, and Dx evaluation, there is no indication for emergent surgery or inpatient Tx. It is understood by the patient/guardian that if the Sx's persist or worsen they need to return immediately for re-evaluation. I have referred the patient to see his PCP for further evaluation of high blood pressure. Based on the history and exam findings, there is no indication for further emergent testing or inpatient evaluation. I discussed with the patient/guardian the need to see the general surgeon for further evaluation of the symptoms. 03/21 19:50 Order name: Urine Culture snw 03/21 19:50 Order name: Urine Microscopic Only; Complete Time: 20:48 snw 03/21 20:11 Order name: Urine Dipstick-Ancillary; Complete Time: 20:19 EDMS 03/21 20:12 Order name: CBC with Diff; Complete Time: 20:35 bb 03/21 20:12 Order name: CMP; Complete Time: 20:52 bb 03/21 20:12 Order name: Lipase; Complete Time: 20:52 bb 03/21 19:50 Order name: Urine Dipstick-Ancillary (obtain specimen); Complete Time: 20:12 snw 03/21 19:50 Order name: Urine Test (obtain specimen); Complete Time: 20:12 snw 03/21 20:12 Order name: IV Saline Lock; Complete Time: 20:12 bb 03/21 20:12 Order name: Labs collected and sent; Complete Time: 20:12 bb 03/21 20:16 Order name: Urine --Ancillary (enter results); Complete Time: 20:52 03/21 20:40 Interpretation: Within normal limits: s/p hyst. snw 03/21 20:29 Order name: US Abdomen Limited snw Administered Medications: 20:51 Drug: Ketorolac 30 mg Route: IVP; Site: right antecubital; tw5 21:01 Follow up: Response: No adverse reaction tw5 21:01 Drug: Rocephin (cefTRIAXone) 1 grams Route: IV; Rate: calculated rate; Site: right tw5 antecubital; 21:01 Follow up: IV Status: Completed infusion; IV Intake: 50ml tw5 Disposition: 23:42 Co-signature as Attending Physician, Luis Addison MD. [email or web address] Disposition Summary: 03/21/22 20:56 Discharge Ordered Location: Home snw Problem: an acute exacerbation snw Symptoms: are unchanged snw Condition: Stable snw Diagnosis - Biliary colic snw - Other cholelithiasis without obstruction snw - Elevated transaminases snw - UTI/ Urinary tract infection, site not specified snw Followup: snw - With: Emergency Department - When: As needed - Reason: Worsening of condition Followup: snw - With: Private Physician - When: 2 - 3 days - Reason: Recheck today's complaints, Continuance of care, Re-evaluation by your physician Followup: snw - With: Clifford Ponce MD - When: 1 week - Reason: Recheck today's complaints, Continuance of care Discharge Instructions: - Discharge Summary Sheet snw - Urinary Tract Infection, Adult snw - Cholelithiasis snw - Gallbladder Nuclear Scan snw - Rehydration, Adult snw Forms: - Medication Reconciliation Form snw - Thank You Letter snw - Antibiotic Education snw - Prescription Opioid Use snw Prescriptions: - Augmentin 875-125 mg Oral Tablet - take 1 tablet by ORAL route every 12 hours for 10 days; 20 tablet; Refills: 0, snw Product Selection Permitted - promethazine 25 mg Oral Tablet - take 1 tablet by ORAL route every 6 hours As needed; 20 tablet; Refills: 0, snw Product Selection Permitted Signatures: Dispatcher [employer] EDMS Saadia Javier, DECORATING MACHINE OPERATOR-C DECORATING MACHINE OPERATOR-Csnw Aileen Solorzano, RN RN bb Luis Addison MD MD 7 Sadaf Verduzco 5 Roya Rebollar RN RN kb3
[2022-03-21] MEDS ORDERED: NA CHLORIDE 0.9% 50 ML ONE (21:02)
[2022-03-21] MEDS ORDERED: CEFTRIAXONE 1000 MG/VIAL ONE (21:02)
--- NOTE | 2022-03-21 21:21 | RAD REPORT ---
EXAM DESCRIPTION: US - Abdomen Exam Limited - 03/21/2022 9:12 pm CLINICAL HISTORY: ABD PAIN COMPARISON: No comparisons FINDINGS: The gallbladder demonstrates single shadowing gallstone No pericholecystic fluid or gallbl adder wall thickening. The common bile duct is mildly prominent measuring 6 mm. The liver demonstrates no findings of intrahepatic biliary dilatation. IMPRESSION: Cholelithiasis. Mildly prominent common bile duct for age. MRCP followup may be considered.
[2022-03-21 23:17] VITALS: TEMP 98.1
[2022-03-21 23:25] VITALS: BP 102/80; O2SAT 100
== END 2022-03-21 21:05 | disposition home or self-care (01) ==
LOC: ER 19:23
DX: K80.50 Calculus of bile duct without cholangitis or cholecystitis without obstruction (principal); K80.80 Other cholelithiasis without obstruction; N39.0 Urinary tract infection, site not specified; R74.01 Elevation of levels of liver transaminase levels; F32.A Depression, unspecified
CPT/HCPCS: 36415; 76705; 80053; 81003; 81015; 81025; 83690; 85025; 87086; 87088; 96374; 96375; 99284

== ENCOUNTER 2022-05-26 06:30 | Day surgery (SDC) | payer OTHER ==
[2022-05-24 16:07] LABS: Absolute Lymphocytes (CBC) 2.1 K/uL (0.7-4.9); Hematocrit 40.3 % (36.0-45.0); MCV 86.8 fL (80-100); MPV 8.7 fL (7.6-11.3); RBC Red Blood Cell Count 4.64 M/uL (3.86-4.86)
[2022-05-24 16:28] LABS: ALT/SGPT 15 U/L (12-78); AST/SGOT 5 U/L (15-37); Albumin 3.6 g/dL (3.4-5.0); Alkaline Phosphatase 53 U/L (45-117); Amylase 81 U/L (25-115); BUN Blood Urea Nitrogen 13 mg/dL (7-18); Bicarbonate 28 mmol/L (21-32); Bilirubin Direct < 0.1 mg/dL (0-0.2); Bilirubin Total 0.4 mg/dL (0.2-1.0); Glomerular Filtration Rate 110 ml/min (=/>90); Glucose Level 72 mg/dL (74-106); Lipase 188 U/L (73-393); Protein, Total 7.6 g/dL (6.4-8.2); Sodium Level 138 mmol/L (136-145)
[2022-05-24 16:42] LABS: SARS-CoV-2 Antigen Rapid Res Negative (Negative)
[2022-05-26] MEDS ORDERED: CEFOXITIN SODIUM 1 GM/VIAL ONE (06:57)
[2022-05-26] MEDS ORDERED: Ringers Lactate 1,000 ML IV ONE (06:57)
[2022-05-26] MEDS ORDERED: ROCURONIUM 50 MG/5 ML VIAL IV ONE (07:06)
[2022-05-26] MEDS ORDERED: FENTANYL CITR 100 MCG/2 ML ONE (07:06)
[2022-05-26] MEDS ORDERED: propofoL 200 MG/20 ML VIAL IV ONE (07:06)
[2022-05-26] MEDS ORDERED: LIDOCAINE 1% MPF 5 ML VIAL ONE (07:06)
[2022-05-26] MEDS ORDERED: MIDAZOLAM HCL 2 MG/2 ML INJ ONE (07:06)
[2022-05-26] MEDS ORDERED: NS 0.9% VIAL 10 ML ONE (07:34)
[2022-05-26] MEDS ORDERED: KETOROLAC 30 MG/ML INJ ONE (07:44)
[2022-05-26] MEDS ORDERED: dexAMETHasone 10 MG/ML VIAL ONE (07:44)
[2022-05-26] MEDS ORDERED: ONDANSETRON 4 MG/2 ML VIAL ONE (07:52)
[2022-05-26] MEDS ORDERED: GLYCOPYRROLATE 0.2 MG/ML SYR ONE (08:05)
[2022-05-26] MEDS ORDERED: NEOSTIGMINE 1 MG/ML -5 ML ONE (08:05)
[2022-05-26 08:11] LABS: Urine Specific Gravity/Preg 1.025 (1.005-1.030)
[2022-05-26] MEDS: HYDROMORPHONE HCL 1 MG/ML INJ ONE ×2 (08:40→08:53)
--- NOTE | 2022-05-26 08:47 | P.BOP ---
Preoperative diagnosis: acute cholecystitis, symptomatic cholelithiasis Postoperative diagnosis: same Primary procedure: Laparoscopic cholecystectomy Emissions Repair Technician: THAO HARRELL (SPIRAL TUBE WINDER) Estimated blood loss: <10cc Specimen: gb Findings: as above Anesthesia: General Complications: None Transferred to: Recovery Room Condition: Good
[2022-05-26] MEDS ORDERED: CODEINE 30MG/APAP 300MG TAB PO ONE (08:54)
[2022-05-26 09:03] VITALS: O2SAT 98
[2022-05-26 09:15] VITALS: BP 102/72; TEMP 97.3
[2022-05-26] MEDS ORDERED: CODEINE 30MG/APAP 300MG TAB ONE (09:26)
--- NOTE | 2022-05-26 09:31 | OP ---
Date of Procedure: 05/26/2022 Surgeon: Clifford Ponce MD Foil Cutter: Nirali Layton. Preoperative Diagnoses: Acute cholecystitis, symptomatic cholelithiasis. Postoperative Diagnoses: Acute cholecystitis, symptomatic cholelithiasis. Procedure: Laparoscopic cholecystectomy Estimated Blood Loss: Less than 10 mL. Specimen: Gallbladder. Anesthesia: General plus local. Indication: This is the case of a 31-year-old patient, comes to us with acute cholecystitis, symptom atic cholelithiasis. At one point, there is also a question of choledocholithiasis, so an MRCP was d one. The benefits, alternatives, and risks of laparoscopic possible open cholecystectomy fully expla ined, which include, but not limited to infection, bleeding, damage to adjacent structures, anesthesi a complication, choledocholithiasis, bile leak, pancreatitis, HI, and even . She also understan ds this may not relieve any symptoms. She might need more than one surgical intervention. She under stood, signed a consent. Procedure In Detail: The patient was brought to the operating room, placed in supine position. Anes thesia was done without complication. Abdominal area was prepped and draped in the usual sterile fas hion. Marcaine 0.5% was injected for local anesthetic followed by sharp incision of the skin in the infraumbilical region. The incision was carried down to fascia, which was opened under direct vision . Peritoneum was encountered, opened under direct vision. Vicryl #1 placed inside the fascia. Jim on trocar was carefully introduced. Pneumoperitoneum was obtained. I placed 3 more trocars, 5 mm ea ch one of them in the epigastric and right upper quadrant area under direct visualization. This allo wed me to put a grasper in the fundus of the gallbladder, another grasper in the infundibulum, retrac ting the gallbladder in the inferolateral fashion, exposing the triangle of Calot, and obtaining crit ical view. Cystic duct and cystic artery were clearly isolated, freed circumferentially and a connec tion between those and the gallbladder were clearly identified. I proceeded to ligate those by using at least 3 clips proximal, 1 clip distal, and ligation in middle. Same was done with the cystic art darby. No bile leak. No bleeding. The gallbladder was removed from liver using Bovie cauterizer and removed from abdominal cavity using EndoCatch through the umbilical incision. The area was inspected once again. No bile leak. No bleeding. At that moment, I proceeded to remove the trocars under di rect vision, deflated pneumoperitoneum. Closed the fascia with #1 Vicryl. Irrigated the subcutaneou s tissue, closed that with 3-0 chromic and the skin with 3-0 chromic in a subcuticular fashion and St court-Strips on top. Sponge count, instrument counts correct. The patient tolerated the procedure wel l. The patient was sent to recovery in stable condition. LENCHO/SIENA Voice ID: [id number] Report ID: [id number]
--- NOTE | 2022-05-26 09:37 | DS ---
Diagnoses: Symptomatic cholelithiasis, acute cholecystitis. Procedure: Laparoscopic cholecystectomy. Disposition: Home. Activity: As tolerated. No heavy lifting. Plan: Follow up in my office in 1 week. Call for appointment at [phone]. Keep area dry for 24 alfonzo rs, then may shower. Keep Steri-Strips intact. LENCHO/SIENA Voice ID: [id number] Report ID: [id number]
== END 2022-05-26 10:05 | disposition home or self-care (01) ==
LOC: OR 06:30
PROVIDERS: ATTEND Surgery
PROC: 0FT44ZZ Resection of Gallbladder, Percutaneous Endoscopic Approach (ICD-10-PCS; principal; 2022-05-26 07:30)
DX: K80.10 Calculus of gallbladder with chronic cholecystitis without obstruction (principal); R10.13 Epigastric pain; F32.A Depression, unspecified; F41.9 Anxiety disorder, unspecified; Z20.822 Contact with and (suspected) exposure to COVID-19
CPT/HCPCS: 85025; 80048; 36415; 82150; 81025; 80076; 88304; 83690; 87811; 47562; J2704; J2001; J2250; J3010; J1100; A4216; J1170; J2710; J7120; J0694; J2405